=== PATIENT | male | born 1960 | race American Indian/Alaskan Native ===

== ENCOUNTER 2018-11-22 14:03 | Emergency (ER) | payer OTHER ==
[~2018-11-22] VITALS: Ht 175.3 cm; Wt 78.5 kg
[~2018-11-22 14:03] MED LIST: NEXIUM20 MG PO; SUCRALFATE1 GM/10 ML PO
[2018-11-22] MEDS ORDERED: ZOFRAN4 MG PO (18:47)
== END 2018-11-22 19:04 | disposition home or self-care (01) ==
LOC: ED 14:03
DX: F10.10 Alcohol abuse, uncomplicated (principal); E86.0 Dehydration; I10 Essential (primary) hypertension; E11.9 Type 2 diabetes mellitus without complications; Z91.038 Other insect allergy status; Z91.030 Bee allergy status; Z79.899 Other long term (current) drug therapy
CPT/HCPCS: 80053; 81001; 83690; 85025; 96361; 96374; 96375; 96376; 99284-25; J2405; J2765; J7030

== ENCOUNTER 2019-09-10 05:35 | Day surgery (SDC) | payer OTHER ==
[~2019-09-10] VITALS: Ht 175.3 cm; Wt 74.8 kg
[~2019-09-10 05:35] MED LIST changes: +ADVIL200 MG PO; +ZOFRAN4 MG PO
--- NOTE | 2019-09-10 08:02 | NUR ---
09/10/19 0802 Maria Alejandra Victor 0755 PT ARRIVED TO PACU ON 2L VIA NC, PT NONAROUSABLE TO TACTILE STIMULI. SNORING NOTED, RESP EVEN AND UNLABORED. 0800 PT WOKE TO TACTILE STIMULI AND O2 REMOVED. PT REORIENTED TO PACU. PT BACK TO SLEEP.
--- NOTE | 2019-09-11 07:06 | OR ---
[facility] [address] [place], [place] [address] Signed DATE OF OPERATION: 09/10/2019 SURGEON: Jose Manuel Sierra MD PREOPERATIVE DIAGNOSIS: Screening. POSTOPERATIVE DIAGNOSES: 1. 4 mm polyps in proximal right colon, mid right colon, proximal transverse colon (90 cm) and 18 cm. 2. Minimal internal hemorrhoids. PROCEDURE: Colonoscopy with hot biopsy. ESTIMATED BLOOD LOSS: None. INDICATIONS: Earnestine is a 58-year-old gentleman, asked to see me for his initial screening colonoscopy. He said he has no lower GI complaints. There is no family history of colon cancer or polyps. I gave him a pamphlet on colonoscopy. We looked at that together along with the risks including, but not limited to gas, bloating, crampy abdominal pain, bleeding, perforation requiring surgery, and missed diagnosis. We also reviewed the need for IV conscious sedation. He has a long history of daily alcohol use and elevated liver function test. Consequently, we asked an anesthesia provider help us with increased monitoring and sedation with propofol. He had expressed understanding and wished to proceed. DESCRIPTION OF PROCEDURE: Earnestine was taken into our endoscopy suite and placed in the left lateral decubitus position. He was given IV sedation with propofol per our nurse business strategy manager. A digital rectal exam was performed and he does have some induration to the prostate gland. The adult colonoscope was introduced and advanced all around into the cecum under direct visualization of camera without difficulty. His prep was good. The scope was slowly withdrawn. We took pictures throughout for photodocumentation. We could easily see the appendiceal orifice and the ileocecal valve. The above-mentioned polyps were easily removed with the help of hot biopsy forceps. There was no diverticulosis. The rectum was unremarkable. Upon retroflexion of the scope, he has some very minimal internal hemorrhoid tissue. The gas was suctioned out. The colonoscope removed. Earnestine Electronically Signed By: JOSE MANUEL SIERRA MD 09/11/19 0706 PATIENT NAME: EARNESTINE AVILAN III OPERATIVE REPORT DATE OF : 62 REPORT #: [id number] PHYSICIAN: JOSE MANUEL SIERRA MD PCP: EBONY CORTES REPORT IS CONFIDENTIAL AND NOT TO BE RELEASED WITHOUT AUTHORIZATION [facility] [address] [place] [id number] Signed tolerated his procedure quite well. RECOMMENDATIONS: I will see Earnestine back in my office in 7 to 14 days to review his results. MD HANNA Sheikh/MODL /[id number] cc: MD Ebony Sheikh Copies: JOSE MANUEL SIERRA MD, ELIZABETH ~ Electronically Signed By: JOSE MANUEL SIERRA MD 09/11/19 0706 PATIENT NAME: EARNESTINE AVILAN III OPERATIVE REPORT DATE OF : 62 REPORT #: [id number] PHYSICIAN: JOSE MANUEL SIERRA MD PCP: EBONY CORTES REPORT IS CONFIDENTIAL AND NOT TO BE RELEASED WITHOUT AUTHORIZATION
--- NOTE | 2019-09-13 15:43 | PATH ---
[facility] [address] [place], [place] [address] Signed SPECIMEN(S): A PROXIMAL TRANSVERSE POLYP AT 90 CM SPECIMEN(S): B MID ASCENDING POLYP SPECIMEN(S): C PROXIMAL ASCENDING POLYP SPECIMEN(S): D COLON POLYP AT 18 CM SPECIMEN SOURCE: A. PROXIMAL TRANSVERSE POLYP AT 90 CM B. MID ASCENDING POLYP C. PROXIMAL ASCENDING POLYP D. COLON POLYP AT 18 CM CLINICAL HISTORY: Screening. Dx: Polyps, int hem. MICROSCOPIC DESCRIPTION: Histologic sections of all submitted blocks are examined by light microscopy. These findings, together with the gross examination, support the pathologic diagnosis. FINAL PATHOLOGIC DIAGNOSIS: A. Mucosa, transverse colon at 90 cm, biopsy: - Surface Features suggestive but not entirely diagnostic of hyperplastic polyp (See comment). B. Mucosa, mid ascending colon, biopsy: - Tubular adenoma. C. Mucosa, proximal ascending colon, biopsy: - Surface Features suggestive but not entirely diagnostic of hyperplastic polyp (See comment). D. Mucosa, colon at 18 cm, biopsy: - Surface Features suggestive but not entirely diagnostic of hyperplastic polyp (See comment). COMMENT: A, C, D -- Multiple levels over three slides are examined. No adenomatous change or full thickness hyperplastic change is seen. ARMANDOA:cml:C2NR GROSS DESCRIPTION: Four specimens are received in four containers, labeled "DM." A. The specimen, labeled "DM, proximal transverse colon polyp at 90 cm," is received in formalin and consists of two duran-white soft tissue fragments ranging from 0.2-0.3 cm in greatest dimension. PATIENT NAME: EARNESTINE AVILA III PATHOLOGY DATE OF : 62 REPORT #: [id number] PHYSICIAN: KEVIN KRISHNA PCP: SHAR CORTES REPORT IS CONFIDENTIAL AND NOT TO BE RELEASED WITHOUT AUTHORIZATION [facility] [address] [place], [place] [address] Signed The specimen is entirely submitted in cassette (A1). B. The specimen, labeled "DM, mid ascending polyp," is received in formalin and consists of a 0.2 cm greatest dimension irregular duran-white soft tissue fragment. The specimen is entirely submitted in cassette (B1). C. The specimen, labeled "DM, proximal ascending polyp," is received in formalin and consists of a 0.2 cm greatest dimension irregular duran-white soft tissue fragment. The specimen is entirely submitted in cassette (C1). D. The specimen, labeled "DM, colon polyp at 18 cm," is received in formalin and consists of a 0.2 cm greatest dimension irregular duran-white soft tissue fragment. The specimen is entirely submitted in cassette (D1). AR (under the direct supervision of a pathologist) The Gross Description was prepared using a voice recognition system. The report was reviewed for accuracy; however, sound-alike word errors, addition and/or deletions may occur. If there is any question about this report, please contact Client Services. PERFORMING LABORATORY: The technical component was performed by [employer] [address] (Sagger Maker: Lianne Colbert MD; CLIA# [id number]). [facility] [address] [place] [address] (Sagger Maker: Serafin Dawson MD; CLIA# [id number]). Diagnostician: Serafin Dawson MD Pathologist Electronically Signed 09/13/2019 Copies: ~ PATIENT NAME: EARNESTINE AVILA III PATHOLOGY DATE OF : 62 REPORT #: [id number] PHYSICIAN: KEVIN PATHOLOGY PCP: SHAR CORTES REPORT IS CONFIDENTIAL AND NOT TO BE RELEASED WITHOUT AUTHORIZATION
== END 2019-09-10 08:36 | disposition home or self-care (01) ==
LOC: DS 05:35 → OPS 05:35 → DS 06:45 → OPS 06:45
PROVIDERS: Colon & Rectal Surgery
PROC: 0DBK8ZZ Excision of Ascending Colon, Via Natural or Artificial Opening Endoscopic (ICD-10-PCS; 2019-09-10)
PROC: 0DBE8ZZ Excision of Large Intestine, Via Natural or Artificial Opening Endoscopic (ICD-10-PCS; 2019-09-10)
PROC: 0DBL8ZZ Excision of Transverse Colon, Via Natural or Artificial Opening Endoscopic (ICD-10-PCS; principal; 2019-09-10 06:45)
DX: Z12.11 Encounter for screening for malignant neoplasm of colon (principal); D12.2 Benign neoplasm of ascending colon; K63.5 Polyp of colon; K64.8 Other hemorrhoids; N42.89 Other specified disorders of prostate; I11.0 Hypertensive heart disease with heart failure; I50.9 Heart failure, unspecified; K21.9 Gastro-esophageal reflux disease without esophagitis; E78.5 Hyperlipidemia, unspecified; E55.9 Vitamin D deficiency, unspecified; E11.9 Type 2 diabetes mellitus without complications; F10.20 Alcohol dependence, uncomplicated; I25.2 Old myocardial infarction; Z91.030 Bee allergy status
CPT/HCPCS: J2704; J7120

== ENCOUNTER 2022-09-05 15:41 | Observation (INO) | payer OTHER ==
[~2022-09-05] VITALS: Ht 175.3 cm; Wt 71.0 kg
--- NOTE | 2022-09-05 22:00 | NUR ---
DR TRONCOSO AT RN STATION. PER DR TRONCOSO, pt HAS HX OF DIABETES BUT IS DIET CONTROLLED. NO NEED FOR ACCU CHECKS AT THIS TIME. PRIMARY RN SHAMIKA UPDATED AND AWARE.
--- NOTE | 2022-09-05 22:23 | NUR ---
pt ARRIVED TO MEDSUR FLOOR FROM ED, PRIMARY RN SHAMIKA AND OMID ALEXANDER BOTH IN ROOM TO COMPLETE ADMISSION AND ORIENT pt TO ROOM. WILL CONTINUE TO MONITOR.
--- NOTE | 2022-09-05 23:03 | NUR ---
XRAY IN RM FOR KUB
--- NOTE | 2022-09-05 23:37 | NUR ---
DR TRONCOSO AWARE THAT ORIGINAL POTASSIUM CHLORIDE ORDER HAD TO BE SWITHCED TO AFTER HOURS TO BE INFUSED IN 10MEQ LITTLE BAGS. ALSO CLARIFIED WITH DR TRONCOSO REGARDING IV POTASSIUM RIDER AND ORDERED IV MAINTENANCE FLUID ORDER, PER DR TRONCOSO TELEPHONE ORDER READ BACK BY THIS RN TO INFUSE POTASSIUM RIDER CONTINUSOUSLY WITH pt's ORDERED MAINTENANCE FLUIDS AND TO WAIT FOR LAB TO COLLECT BMP UNTIL pt HAS HAD 40MEQ POTASSIUM INFUSED (PER POTASSIUM INFUSION POLICY). PRIMARY RN SHAMIKA UPDATED AND AWARE. PER DR TRONCOSO, NO NEED TO CALL HER FOR BMP RESULTS LONG SODIUM AND POTASSIUM ARE TRENDING IN "RIGHT DIRECTION". DR TRONCOSO ALSO UPDATED ON ABD X-RAY RESULTS WHICH SHOWED NO BOWEL OBSTRUCTION.
--- NOTE | 2022-09-06 00:03 | NUR ---
mixed kcl iv with zulema rn 2nd check. iv scanned and fusing conncurrently on pump. pt resting eyes closed on right side.
--- NOTE | 2022-09-06 01:18 | NUR ---
rn started 2nd kcl 10 meq now via pump, resting eyes closed resp even r side. call light in reach.
--- NOTE | 2022-09-06 02:09 | NUR ---
lab in for bmp draw.
--- NOTE | 2022-09-06 03:47 | NUR ---
pt continues to rest on side - last k dhiraj infusing via pump now.
--- NOTE | 2022-09-06 05:28 | NUR ---
last kcl dhiraj complete - primary iv fusing well - pt continues to rest with no complaints other than kcl stings. call light in reach.
--- NOTE | 2022-09-06 08:09 | NUR ---
PT IN BED THIS MORNING, WOULD LIKE TO GET UP LATER. AM CARE COMPLETED. PT HAS NO OTHER NEEDS AT THIS TIME. CALL LIGHT WITHIN REACH.
[2022-09-06] MEDS ORDERED: TUMS200 MG PO (08:23)
--- NOTE | 2022-09-06 10:14 | NUR ---
BED ALARM ALERTED PT WAS GETTING OUT OF BED. THIS STUDENT NURSE IN ROOM WITH PT TO ASSIST TO BATHROOM. PT REPORTED THAT IT WAS "MOSTLY JUST GAS." PT ASSISTED BACK TO BED, PUMP PLUGGED IN, AND BED ALARM RESET. PT EDUCATED TO CALL BEFORE GETTING OUT OF BED SO THAT SOMEONE CAN BE IN THE ROOM WITH HIM TO STAND BY ASSIST. PT STATES NO MORE NEEDS AT THIS TIME AND CALL LIGHT IS WITHIN REACH.
--- NOTE | 2022-09-06 10:40 | NUR ---
PATIENT IN BED AFTER MEAL. VITALS AND I/O'S COMPLETED, AND ICE WATER WAS GIVEN. FAMILY IN ROOM. PT HAS NO OTHER NEEDS AT THIS TIME. CALL LIGHT WITHIN REACH.
--- NOTE | 2022-09-06 11:15 | NUR ---
IN ROOM TO ADMINISTER MEDICATION. PT SITTING UPRIGHT IN BED WATCHING TV WITH SON IN ROOM. RESP EVEN AND UNLABORED, IV POTASSIUM INFUSING. PT ATE 100% OF BREAKFAST AND DENIES ANY NAUSEA SINCE. CALL LIGHT IN REACH.
--- NOTE | 2022-09-06 11:38 | NUR ---
Pt IV pump alarming. Entered room to assess alarm. Potassium IV infusion completed. Stopped infusion and turned off IV pump. Flushed IV with 10 ml saline flush. IV saline locked. Pt left resting comfrotably watching TV with guest in room. Call light in reach.
[2022-09-06] MEDS ORDERED: POTASSIUM CHLO20 ME1 PO (12:37)
--- NOTE | 2022-09-06 12:50 | NUR ---
IN ROOM TO ADMINISTER MEDICATION. PT SITTING UPRIGHT IN BED VISITING WITH FAMILY AND WATCHING TV. DENIES NAUSEA. FINISHED BEER, 25% OF CLEARS TRAY, SAYS HE "JUST ISN'T THAT HUNGRY". PT EDUCATED TO CALL IF NOT TOLERATING PO POTASSIUM, PLAN TO D/C TO HOME OTHERWISE LATER TODAY.
--- NOTE | 2022-09-06 14:04 | NUR ---
ALL DISCHARGE INSTRUCTIONS REVIEWED WITH PT. AND QUESTIONS ANSWERED. CHILDREN PRESENT. IV REMOVED WITH CATH INTACT. PT. LEFT TO DRESS.
== END 2022-09-06 14:12 | disposition home or self-care (01) ==
LOC: ED 15:41 → MS 15:43
PROVIDERS: ADMIT Internal Medicine; ATTEND Internal Medicine
DX: E87.6 Hypokalemia (principal); R11.2 Nausea with vomiting, unspecified; F10.90 Alcohol use, unspecified, uncomplicated; Z91.038 Other insect allergy status; Z20.822 Contact with and (suspected) exposure to COVID-19
CPT/HCPCS: 36415; 74018; 80048; 80053; 81001; 83690; 83735; 85025; 96375; A9270; C9113; G0378; J2405; J2550; J3480; J7030; J7060; U0003

== ENCOUNTER 2022-11-07 15:38 | Emergency (ER) | payer OTHER ==
[~2022-11-07] VITALS: Ht 175.3 cm; Wt 70.8 kg
[~2022-11-07 15:38] MED LIST changes: +POTASSIUM CHLO20 ME1 PO; +TUMS200 MG PO
[2022-11-08] MEDS ORDERED: TAMIFLU75 MG PO (07:28)
[2022-11-08] MEDS ORDERED: ONDANSETRON ODT4 MG PO (08:11)
--- NOTE | 2022-11-09 19:02 | EKG ---
[facility] [address] [facility] [place] [address] Signed Sinus tachycardia Left anterior fascicular block Abnormal ECG No previous ECGs available Confirmed by JAYLIN CANDELARIA MD ([id number]) on 11/09/2022 7:01:53 PM Electronically Signed By: JAYLIN CANDELARIA MD 11/09/221901 PATIENT NAME: EARNESTINE AVILA III Electrocardiogram DATE OF : 62 PHYSICIAN: JAYLIN CANDELARIA MD REPORT #: [id number] REPORT IS CONFIDENTIAL AND NOT TO BE RELEASED WITHOUT AUTHORIZATION
== END 2022-11-08 08:18 | disposition home or self-care (01) ==
LOC: ED 15:38
DX: J10.1 Influenza due to other identified influenza virus with other respiratory manifestations (principal); E87.6 Hypokalemia; I10 Essential (primary) hypertension; E11.9 Type 2 diabetes mellitus without complications; Z91.030 Bee allergy status; Z20.822 Contact with and (suspected) exposure to COVID-19
CPT/HCPCS: 36415; 71045; 80048; 80053; 83735; 84484; 85025; 87502; 93005; 93010; 96361; 96365; 96366; 96375; 96376; 99284-25; A9270; C9113; J0780; J1885; J2405; J2765; J3480; J7121; U0003

== ENCOUNTER 2024-04-09 16:09 | Observation (INO) | payer OTHER ==
[~2024-04-09] VITALS: Ht 175.3 cm; Wt 70.0 kg
[~2024-04-09 16:09] MED LIST changes: +ONDANSETRON ODT4 MG PO; +ONDANSETRON ODT8 MG PO; +PROTONIX40 MG PO; +TAMIFLU75 MG PO
[2024-04-09 16:37] LABS: HEMATOCRIT 44.5 % (35.0-50.0); HEMOGLOBIN 15.3 g/dL (12.0-18.0); MCH 33.6 (27-36); MCHC 34.4 g/dl (30-36); MCV 97.7 fl (81-99); PLATELET COUNT 197 K/uL (140-440); RBC 4.56 M/ul (4.3-5.7); RDW 14.4 (10.5-15.0)
[2024-04-09 16:54] LABS: ALBUMIN 3.5 g/dL (3.4-5.0); ALBUMIN/GLOBULIN RATIO 0.64 (1.1-2.4); ANION GAP 14.1 (7-21); BANDS, MANUAL DIFF 1; BILIRUBIN, TOTAL 1.5 ng/dL (0.2-1.0); BUN/CREATININE RATIO 13.68 (6.0-28.6); CALCIUM 9.1 mg/dL (8.5-10.1); CREATININE, SERUM 0.95 mg/dL (0.70-1.30); LYMPHOCYTES, MANUAL DIFF 5; MAGNESIUM 1.8 mg/dL (1.8-2.4); MONOCYTES, MANUAL DIFF 12; NEUTROPHILS, MANUAL DIFF 82
[2024-04-09 16:57] LABS: POTASSIUM 2.1 mmol/L (3.5-5.1)
[2024-04-09] MEDS ORDERED: ondansetron HCL 4 MG/2 ML VIAL IV ONE (17:15)
[2024-04-09] MEDS ORDERED: AMP/SULBACTAM SOD 3 GM in SODIUM CHLORIDE 0.9% 100 ML IV ONE (17:30)
[2024-04-09] MEDS ORDERED: POTASSIUM CHLORIDE 10 MEQ/100 ML BAG IV SCH ×2 (17:30→20:00)
[2024-04-09] MEDS ORDERED: PANTOPRAZOLE SODIUM 40 MG TABEC PO SCH (18:17)
[2024-04-09 18:33] LABS: BILIRUBIN, URINE NEGATIVE (negative); BLOOD/HGB, URINE NEGATIVE (Negative); KETONE, URINE SMALL (Negative); LEUK ESTERASE, URINE NEGATIVE (negative); NITRITE, URINE NEGATIVE (negative); PH, URINE 8.5 (5-7)
[2024-04-09 18:44] LABS: BACTERIA, URINE NONE SEEN /hpf (negative); CASTS, URINE HYALINE 1+ \\lpf; CRYSTALS, URINE NONE SEEN (0-1+); EPITHELIAL CELLS, URINE SQUAMOUS 1+ /lpf (0-1+); RED BLOOD CELLS, URINE 0-1 /hpf (0-5)
[2024-04-09 18:45] LABS: COLLECTION TYPE, URINE CLEAN CATCH; REFLEX CULTURE, URINE No (No)
[2024-04-09 18:47] VITALS: BP 120/70
[2024-04-09 19:00] VITALS: BP 109/56
[2024-04-09] MEDS ORDERED: IBLOOD GLUCOSE TEST STRIP 1 EA TEST XX PRN (19:00)
[2024-04-09] MEDS ORDERED: ACETAMINOPHEN 325 MG TAB PO PRN (19:00)
[2024-04-09] MEDS ORDERED: GLUCAGON,HUMAN RECOMBINANT 1 MG/ML VIAL SUB-Q PRN (19:00)
[2024-04-09] MEDS ORDERED: DEXTROSE 5% 1,000 ML IV PRN (19:00)
[2024-04-09] MEDS ORDERED: DEXTROSE 50% 50 ML SYR IV PRN ×2 (19:00)
[2024-04-09 19:30] VITALS: BP 109/66
--- NOTE | 2024-04-09 19:58 | NUR ---
PATIENT CONTINUES TO BE NAUSEOUS WITH FREQUENT VOMITING. DISCUSSED WITH MD. ORDERS RECEIVED FOR ANTIEMETICS, ABX, IVF, AND ELECTROLYTE REPLACEMENT. VERIFIED WITH REPEAT BACK METHOD. SEE EMAR. IN TO SEE PATIENT.
[2024-04-09] MEDS ORDERED: ondansetron HCL 4 MG/2 ML VIAL IV PRN (20:00)
[2024-04-09] MEDS ORDERED: PROCHLORPERAZINE EDISYLATE 10 MG/2 ML VIAL IV PRN (20:00)
[2024-04-09] MEDS ORDERED: MAGNESIUM SULFATE 2 GM/50 ML BAG IV ONE (20:00)
[2024-04-09] MEDS ORDERED: LACTATED RINGER'S 1,000 ML IV SCH (20:00)
[2024-04-09] MEDS ORDERED: PANTOPRAZOLE SODIUM 40 MG/10 ML VIAL IV ONE (20:00)
[2024-04-09] MEDS ORDERED: PIPERACILLIN/TAZOBACTAM 4.5 GM in DEXTROSE 5% 100 ML IV SCH (20:00)
--- NOTE | 2024-04-09 20:00 | NUR ---
PRN COMPAZINE PROVIDED. IVF, K+ AND MAG REPLACEMENT STARTED PER ORDER. PATIENT RESTING IN BED. CONTINUES TO FEEL NAUSEOUS WITH INTERMITTENT DRY HEAVING. VS STABLE. IV SITE WNL.
[2024-04-09 20:21] VITALS: BP 102/54
[2024-04-09] MEDS ORDERED: TRIMETHOPRIM/SULFAMETHOXAZOLE 1 EA TAB PO SCH (21:00)
[2024-04-09] MEDS ORDERED: IBLOOD GLUCOSE TEST STRIP 1 EA TEST VI SCH (21:00)
[2024-04-09] MEDS ORDERED: INSULIN LISPRO 100 UNIT/ML ML SUB-Q SCH (21:00)
--- NOTE | 2024-04-09 21:42 | NUR ---
ACCU CHECK AND K+ REPLACEMENT PROVIDED PER ORDER. PATIENT IS SLEEPING OFF AND ON. REPORTS FEELING SLIGHTLY BETTER, MINIMAL NAUSEA NOW. IV SITE WNL, FLUIDS AND K+ REPLACMENT PER ORDER. CALL LIGHT IN REACH. PATIENT DENIED NEEDS.
[2024-04-09 22:00] VITALS: BP 98/58
--- NOTE | 2024-04-09 22:30 | NUR ---
PATIENT RESTING WITH EYES CLOSED. APPEARS COMFORTABLE. VS STABLE. UPDATED WHILE HE WAS ON THE UNIT. PLAN OF CARE REVIEWED.
--- NOTE | 2024-04-09 23:30 | NUR ---
PATIENT'S SON ARRIVED TO THE ROOM. UPDATE PROVIDED ON PLAN OF CARE. PATIENT APPEARS TO BE SLEEPING SOUNDLY. VS STABLE.
[2024-04-10] VITALS (7 sets, daily range): BP systolic 100–124; BP diastolic 58–82
[2024-04-10] MEDS ORDERED: PIPERACILLIN/TAZOBACTAM 3.375 GM VIAL ONE (01:18)
[2024-04-10 01:56] LABS: ANION GAP 8.5 (7-21); BUN/CREATININE RATIO 23.07 (6.0-28.6); CALCIUM 8.4 mg/dL (8.5-10.1); CREATININE, SERUM 0.78 mg/dL (0.70-1.30); MAGNESIUM 2.6 mg/dL (1.8-2.4); POTASSIUM 2.5 mmol/L (3.5-5.1)
[2024-04-10] MEDS ORDERED: PIPERACILLIN/TAZOBACTAM 3.375 GM in DEXTROSE 5% 100 ML IV SCH (02:00)
--- NOTE | 2024-04-10 02:21 | NUR ---
PATIENT LAB RESULTS REVIEWED AND K+ REPLACEMENT ORDERED PER MD.
[2024-04-10] MEDS ORDERED: POTASSIUM CHLORIDE 10 MEQ/100 ML BAG IV SCH (02:30)
--- NOTE | 2024-04-10 02:49 | NUR ---
PATIENT WOKE EASILY. DENIES NEED TO VOID. REPORTS HIS STOMACH IS FEELING BETTER. DENIED PAIN IN HIS GROIN WHERE ABCESS WAS DRAINED. VS STABLE. PROVIDED ICE CHIPS AND JELLO PER REQUEST.
--- NOTE | 2024-04-10 03:43 | NUR ---
PATIENT RESTING WITH EYES CLOSED. VS STABLE. APPEARS COMFORTABLE. SON AT BEDSIDE. IV FLUIDS AND MEDS PER ORDER, SITE WNL.
--- NOTE | 2024-04-10 05:30 | NUR ---
PATIENT RESTING WITH EYES CLOSED. WAKES EASILY TO VOICE. DENIED GI UPSET. IV SITE WNL. VS STABLE. ENCOURAGED PATIENT TO TRY TO VOID, PATIENT AGREES. SON AT BEDSIDE. ALLOWED PATIENT PRIVACY.
--- NOTE | 2024-04-10 06:38 | NUR ---
PATIENT VOIDED 350 MLS BASSAM COLORED URINE. WOUND PACKING NOTED TO BE IN PLACE. DRIED DRAINAGE NOTED AROUND WOUND SITE. DISCUSSED WITH MD. ORDERS TO REPACK DRESSING DAILY.
[2024-04-10 06:43] LABS: BASOPHILS 0.3 % (0-2); HEMATOCRIT 39.2 % (35.0-50.0); HEMOGLOBIN 13.2 g/dL (12.0-18.0); LYMPHOCYTES 15.4 % (24-44); MCH 33.2 (27-36); MCHC 33.8 g/dl (30-36); MCV 98.2 fl (81-99); MONOCYTES 12.8 % (0-12); NEUTROPHILS 71.5 % (39-80); PLATELET COUNT 175 K/uL (140-440); RBC 3.99 M/ul (4.3-5.7); RDW 14.2 (10.5-15.0)
[2024-04-10 06:50] LABS: ANION GAP 6.8 (7-21); BUN/CREATININE RATIO 18.29 (6.0-28.6); CALCIUM 8.2 mg/dL (8.5-10.1); CREATININE, SERUM 0.82 mg/dL (0.70-1.30); MAGNESIUM 2.3 mg/dL (1.8-2.4); POTASSIUM 2.8 mmol/L (3.5-5.1)
[2024-04-10] MEDS ORDERED: Calcium Gluconate in NS 1,000 MG/50 ML BAG IV ONE (07:15)
--- NOTE | 2024-04-10 07:30 | NUR ---
REPORT RECEIVED FROM MARTIN BELLAMY. PT IS RESTING IN BED, RESP EVEN AND UNLABORED, HR 70'S SR. SON IN ROOM ON COUCH.
[2024-04-10] MEDS ORDERED: POTASSIUM CHLORIDE 10 MEQ TABCR PO ONE ×2 (08:00→12:00)
--- NOTE | 2024-04-10 08:00 | NUR ---
IN TO DO AM MEDS AND ASSESSMENT AND BRING BREAKFAST IN.
[2024-04-10] MEDS ORDERED: TRIMETHOPRIM/SULFAMETHOXAZOLE 1 EA TAB PO SCH (09:19)
--- NOTE | 2024-04-10 09:44 | NUR ---
PT WAS NOT ABLE TO EAT HIS BREAKFAST, WAS APPLE TO DRINK SOME APPLE JUICE AND TAKE HIS PILLS. STATES HIS THROAT HIS HURTING.
[2024-04-10 11:27] LABS: ANION GAP 6.9 (7-21); BUN/CREATININE RATIO 17.5 (6.0-28.6); CALCIUM 8.2 mg/dL (8.5-10.1); CREATININE, SERUM 0.8 mg/dL (0.70-1.30); POTASSIUM 2.9 mmol/L (3.5-5.1)
[2024-04-10] MEDS ORDERED: PHARMACY RENAL DOSE ADJUSTMENT 1 DOSE MISC PO SCH (12:00)
--- NOTE | 2024-04-10 12:09 | NUR ---
PT SITTING UP IN BED, FAMILY IN VISITING HIM, DENIES NEEDS, TRYING TO TRY A FEW BITES OF LUNCH. RECENT LAB RESULTS RECEIVED, ORDER FOR ORAL KCL ENTERED, PT STATES HE CANT TOLERATE PILLS, WILL CHANGE TO ORAL SOLUTION.
[2024-04-10] MEDS ORDERED: POTASSIUM CHLORIDE 20 MEQ/15 ML CUP PO ONE ×2 (12:15→16:00)
[2024-04-10 15:19] LABS: ANION GAP 7.4 (7-21); BUN/CREATININE RATIO 15.71 (6.0-28.6); CALCIUM 8.3 mg/dL (8.5-10.1); CREATININE, SERUM 0.7 mg/dL (0.70-1.30); POTASSIUM 3.4 mmol/L (3.5-5.1)
--- NOTE | 2024-04-10 15:50 | NUR ---
IN TO DO ASSESSMENT, PT HAS BEEN EATING BITES OF SHERBET, DENIES PAIN OR NEEDS.
--- NOTE | 2024-04-10 16:01 | NUR ---
DR LOGAN IN TO SEE PT, GO OVER MOST RECENT POTASSIUM RESULT. WILL GIVE ADDITIONAL DOSE OF KCL
[2024-04-10] MEDS ORDERED: SULFAMETHOXAZO1 EAC1 PO (17:06)
--- NOTE | 2024-04-10 18:00 | NUR ---
DR DESMOND TAPIA PT TO DISCHARGE HOME WITH PLAN FOR OUTPATIENT WOUND CARE ORDERS. PERINEAL WOUND WAS CLEANED, OLD PACKING REMOVED AND NEW XEROFORM GAUZE PACKING PLACED, ONE PACK OF XEROFORM USED. DISCHARGE INSTRUCTIONS GIVEN AND PT VERBALIZES UNDERSTANDING. PT GIVEN PRESCRIPTION FOR ABX ON PAPER AND PLANS TO GO TO [facility] FOR MEDS TONIGHT [facility] IS CLOSED THIS WEEKEND. IV SITES X2 DC'D WITH TIPS INTACT, VSS. PT ESCORTED OUT TO HOME, SON WAITING AT DOOR FOR HIM.
== END 2024-04-10 18:15 | disposition home or self-care (01) ==
LOC: ED 16:09 → CCU 16:12
PROVIDERS: Emergency Medicine; ADMIT Internal Medicine; ATTEND Internal Medicine
PROC: 0H99XZZ Drainage of Perineum Skin, External Approach (ICD-10-PCS; principal; 2024-04-09)
DX: E87.6 Hypokalemia (principal); E87.1 Hypo-osmolality and hyponatremia; E83.42 Hypomagnesemia; L02.215 Cutaneous abscess of perineum; I10 Essential (primary) hypertension; E11.9 Type 2 diabetes mellitus without complications; Z91.030 Bee allergy status
CPT/HCPCS: 36415; 80048; 80053; 81001; 83735; 84484; 85025; A9270; C9113; J0295; J0780; J1815; J2405; J2543; J3475; J3480; J7121

== ENCOUNTER 2024-06-25 11:05 | Observation (INO) | payer OTHER ==
[~2024-06-25] VITALS: Ht 175.3 cm; Wt 73.9 kg
[~2024-06-25 11:05] MED LIST changes: +SULFAMETHOXAZO1 EAC1 PO
[2024-06-25] MEDS ORDERED: PROCHLORPERAZINE EDISYLATE 10 MG/2 ML VIAL IV ONE (11:15)
[2024-06-25] MEDS ORDERED: PANTOPRAZOLE SODIUM 40 MG/10 ML VIAL IV ONE (11:15)
[2024-06-25] MEDS ORDERED: SODIUM CHLORIDE 0.9% 1,000 ML IV ONE (11:15)
[2024-06-25 11:25] LABS: BASOPHILS 0.3 % (0-2); EOSINOPHILS 0.3 % (0-6); HEMOGLOBIN 15.9 g/dL (12.0-18.0); LYMPHOCYTES 5.5 % (24-44); MCH 34.3 (27-36); MCHC 34.5 g/dl (30-36); MCV 99.5 fl (81-99); MONOCYTES 10.1 % (0-12); NEUTROPHILS 83.8 % (39-80); PLATELET COUNT 154 K/uL (140-440); RBC 4.62 M/ul (4.3-5.7); RDW 14.2 (10.5-15.0)
[2024-06-25 11:36] LABS: ALBUMIN 3.1 g/dL (3.4-5.0); ALBUMIN/GLOBULIN RATIO 0.62 (1.1-2.4); ALCOHOL, MEDICAL <3 ng/dL (<3); ALKALINE PHOSPHATASE 48 U/L (46-116); ALT (SGPT) 27 U/L (14-59); ANION GAP 14.2 (7-21); AST (SGOT) 41 U/L (15-37); BILIRUBIN, TOTAL 1.6 ng/dL (0.2-1.0); CALCIUM 8.8 mg/dL (8.5-10.1); CARBON DIOXIDE 31 mmol/L (21-32); CHLORIDE 84 mmol/L (98-107); CREATININE, SERUM 0.93 mg/dL (0.70-1.30); GLOMERULAR FILTRATION RATE,EST 93 mL/min (>60); MAGNESIUM 1.8 mg/dL (1.8-2.4); PROTEIN, TOTAL 8.1 g/dL (6.4-8.2); UREA NITROGEN 12 mg/dL (7-18)
[2024-06-25 11:38] LABS: POTASSIUM 2.2 mmol/L (3.5-5.1)
[2024-06-25] MEDS ORDERED: SODIUM CHLORIDE 0.9% INH ONE (12:00)
[2024-06-25] MEDS ORDERED: METOCLOPRAMIDE HCL 10 MG/2 ML SDV IV ONE (12:00)
[2024-06-25] MEDS ORDERED: POTASSIUM CHLORIDE 10 MEQ/100 ML BAG IV SCH (12:00)
[2024-06-25] MEDS ORDERED: LACTATED RINGER'S 400 ML IV SCH (12:15)
[2024-06-25] MEDS ORDERED: POTASSIUM CHLORIDE 20 MEQ/15 ML CUP PO SCH ×2 (12:15→17:00)
[2024-06-25 16:10] LABS: ANION GAP 4.9 (7-21); BUN/CREATININE RATIO 13.23 (6.0-28.6); CREATININE, SERUM 0.68 mg/dL (0.70-1.30); POTASSIUM 2.9 mmol/L (3.5-5.1)
[2024-06-25] MEDS ORDERED: MAGNESIUM SULFATE 2 GM/50 ML BAG IV ONE ×2 (16:30→17:45)
[2024-06-25] MEDS ORDERED: droPERidol 5 MG/2 ML VIAL IV ONE (16:30)
[2024-06-25] MEDS ORDERED: FAMOTIDINE 20 MG TAB PO SCH (17:27)
[2024-06-25] MEDS ORDERED: ENOXAPARIN SODIUM 40 MG/0.4 ML SYR SUB-Q SCH (17:28)
[2024-06-25] MEDS ORDERED: POTASSIUM CHLORIDE 40 MEQ,LIDOCAINE HCL 1% 40 MG in DEXTROSE 5% 250 ML IV ONE (17:45)
[2024-06-25] MEDS ORDERED: ACETAMINOPHEN 325 MG TAB PO PRN (18:00)
[2024-06-25] MEDS ORDERED: PROCHLORPERAZINE EDISYLATE 10 MG/2 ML VIAL IV PRN (18:00)
[2024-06-25] MEDS ORDERED: LACTATED RINGER'S 1,000 ML IV SCH (18:00)
[2024-06-25] MEDS ORDERED: ondansetron HCL 4 MG/2 ML VIAL IV PRN (18:00)
[2024-06-25 18:03] VITALS: BP 143/70
[2024-06-25 20:15] LABS: ALBUMIN 2.5 g/dL (3.4-5.0); ALBUMIN/GLOBULIN RATIO 0.61 (1.1-2.4); ANION GAP 6.8 (7-21); BILIRUBIN, TOTAL 1.4 ng/dL (0.2-1.0); BUN/CREATININE RATIO 11.94 (6.0-28.6); CALCIUM 7.7 mg/dL (8.5-10.1); CREATININE, SERUM 0.67 mg/dL (0.70-1.30); MAGNESIUM 2.3 mg/dL (1.8-2.4); POTASSIUM 2.8 mmol/L (3.5-5.1); PROTEIN, TOTAL 6.6 g/dL (6.4-8.2)
[2024-06-25 20:44] VITALS: BP 108/65
[2024-06-25 23:02] VITALS: BP 108/65
[2024-06-26] VITALS (10 sets, daily range): BP systolic 115–148; BP diastolic 73–93
[2024-06-26 05:07] LABS: BASOPHILS 0.1 % (0-2); EOSINOPHILS 0.2 % (0-6); HEMATOCRIT 39.7 % (35.0-50.0); HEMOGLOBIN 13.6 g/dL (12.0-18.0); LYMPHOCYTES 24.7 % (24-44); MCH 34.4 (27-36); MCHC 34.2 g/dl (30-36); MCV 100.6 fl (81-99); MONOCYTES 13.3 % (0-12); NEUTROPHILS 61.7 % (39-80); PLATELET COUNT 133 K/uL (140-440); RBC 3.95 M/ul (4.3-5.7); RDW 13.6 (10.5-15.0)
[2024-06-26 05:27] LABS: ALBUMIN 2.6 g/dL (3.4-5.0); ALBUMIN/GLOBULIN RATIO 0.62 (1.1-2.4); ANION GAP 7.9 (7-21); BILIRUBIN, TOTAL 1.2 ng/dL (0.2-1.0); BUN/CREATININE RATIO 13.84 (6.0-28.6); CALCIUM 8.1 mg/dL (8.5-10.1); CREATININE, SERUM 0.65 mg/dL (0.70-1.30); MAGNESIUM 2.2 mg/dL (1.8-2.4); POTASSIUM 2.9 mmol/L (3.5-5.1); PROTEIN, TOTAL 6.8 g/dL (6.4-8.2)
[2024-06-26] MEDS ORDERED: POTASSIUM CHLORIDE 10 MEQ TABCR PO ONE (06:30)
[2024-06-26] MEDS ORDERED: POTASSIUM CHLORIDE 40 MEQ,LIDOCAINE HCL 1% 40 MG in DEXTROSE 5% 250 ML IV ONE ×2 (06:30→08:30)
[2024-06-26] MEDS ORDERED: PHARMACY RENAL DOSE ADJUSTMENT 1 DOSE MISC PO SCH (12:00)
[2024-06-26 12:21] LABS: ALBUMIN 2.6 g/dL (3.4-5.0); ALBUMIN/GLOBULIN RATIO 0.62 (1.1-2.4); ANION GAP 8.6 (7-21); BUN/CREATININE RATIO 12.3 (6.0-28.6); CALCIUM 7.8 mg/dL (8.5-10.1); CREATININE, SERUM 0.65 mg/dL (0.70-1.30); POTASSIUM 3.6 mmol/L (3.5-5.1); PROTEIN, TOTAL 6.8 g/dL (6.4-8.2)
[2024-06-26] MEDS ORDERED: Calcium Gluconate in NS 1,000 MG/50 ML BAG IV ONE (13:00)
[2024-06-27 01:27] VITALS: BP 142/90
[2024-06-27 01:32] VITALS: BP 142/90
[2024-06-27 05:15] LABS: BASOPHILS 0.4 % (0-2); HEMATOCRIT 40.3 % (35.0-50.0); HEMOGLOBIN 13.9 g/dL (12.0-18.0); LYMPHOCYTES 36.1 % (24-44); MCH 34.3 (27-36); MCHC 34.4 g/dl (30-36); MCV 99.6 fl (81-99); MONOCYTES 14.5 % (0-12); PLATELET COUNT 139 K/uL (140-440); RBC 4.04 M/ul (4.3-5.7); RDW 13.6 (10.5-15.0)
[2024-06-27 05:23] VITALS: BP 142/77
[2024-06-27 05:24] LABS: ANION GAP 9.2 (7-21); BUN/CREATININE RATIO 10.71 (6.0-28.6); CALCIUM 8.1 mg/dL (8.5-10.1); CREATININE, SERUM 0.56 mg/dL (0.70-1.30); MAGNESIUM 1.8 mg/dL (1.8-2.4); POTASSIUM 3.2 mmol/L (3.5-5.1)
[2024-06-27 05:59] VITALS: BP 142/77
[2024-06-27] MEDS ORDERED: POTASSIUM CHLORIDE 10 MEQ TABCR PO ONE (06:30)
[2024-06-27 08:30] LABS: OSMOLALITY 273 mOsm/kg (280-303)
[2024-06-27 09:15] VITALS: BP 152/87
--- NOTE | 2024-06-27 09:43 | EKG ---
[facility] [address] [facility] [place] [address] Signed Sinus rhythm with premature atrial complexes Otherwise normal ECG When compared with ECG of 07-NOV-2022 20:20, premature atrial complexes are now present Confirmed by EZEQUIEL LOGAN MD ([id number]) on 06/27/2024 9:43:13 AM Electronically Signed By: EZEQUIEL LOGAN 06/27/24 0943 PATIENT NAME: EARNESTINE AVILA III Electrocardiogram DATE OF : 62 PHYSICIAN: EZEQUIEL LOGAN REPORT #: [id number] REPORT IS CONFIDENTIAL AND NOT TO BE RELEASED WITHOUT AUTHORIZATION
[2024-06-27 10:17] LABS: ANION GAP 12.2 (7-21); BUN/CREATININE RATIO 10.44 (6.0-28.6); CALCIUM 8.1 mg/dL (8.5-10.1); CREATININE, SERUM 0.67 mg/dL (0.70-1.30); POTASSIUM 3.2 mmol/L (3.5-5.1)
[2024-06-27] MEDS ORDERED: ONDANSETRON ODT8 MG PO (10:38)
[2024-06-27] MEDS ORDERED: POTASSIUM CHLO20 ME1 PO (10:43)
== END 2024-06-27 11:32 | disposition home or self-care (01) ==
LOC: ED 11:05 → MS 11:07
PROVIDERS: Emergency Medicine; ADMIT Internal Medicine; ATTEND Internal Medicine
DX: E87.6 Hypokalemia (principal); E87.1 Hypo-osmolality and hyponatremia; E83.42 Hypomagnesemia; R11.2 Nausea with vomiting, unspecified; F12.90 Cannabis use, unspecified, uncomplicated; I10 Essential (primary) hypertension; E11.9 Type 2 diabetes mellitus without complications
CPT/HCPCS: 36415; 74177; 80048; 80053; 83605; 83690; 83735; 83930; 85025; 93005; 93010; A9270; G0480; J0780; J1650; J1790; J2470; J2765; J3475; J3480; J3490; J7030; J7060; J7120; J7121

== ENCOUNTER 2024-09-08 08:57 | Inpatient (IN) | payer OTHER ==
[~2024-09-08] VITALS: Ht 175.3 cm; Wt 73.7 kg
[2024-09-08] MEDS ORDERED: PANTOPRAZOLE SODIUM 40 MG/10 ML VIAL IV ONE (09:15)
[2024-09-08] MEDS ORDERED: HYDROmorphone HCL 1 MG/ML SYR IV ONE (09:15)
[2024-09-08] MEDS ORDERED: ondansetron HCL 4 MG/2 ML VIAL IV ONE (09:15)
[2024-09-08] MEDS ORDERED: SODIUM CHLORIDE 0.9% 1,000 ML IV ONE (09:15)
[2024-09-08 09:22] LABS: BASOPHILS 0.2 % (0-2); EOSINOPHILS 0.1 % (0-6); HEMATOCRIT 47.3 % (35.0-50.0); HEMOGLOBIN 16.5 g/dL (12.0-18.0); LYMPHOCYTES 6.8 % (24-44); MONOCYTES 12.5 % (0-12); NEUTROPHILS 80.4 % (39-80); PLATELET COUNT 178 K/uL (140-440); RBC 4.73 M/ul (4.3-5.7); RDW 13.7 (10.5-15.0)
[2024-09-08] MEDS ORDERED: LORazepam 2 MG/ML VIAL IV ONE (09:30)
[2024-09-08 09:38] LABS: ALBUMIN 3.9 g/dL (3.4-5.0); ALBUMIN/GLOBULIN RATIO 0.74 (1.1-2.4); ANION GAP 16.4 (7-21); BILIRUBIN, TOTAL 1.7 ng/dL (0.2-1.0); BUN/CREATININE RATIO 9.32 (6.0-28.6); CALCIUM 9.6 mg/dL (8.5-10.1); CREATININE, SERUM 1.18 mg/dL (0.70-1.30); PROTEIN, TOTAL 9.2 g/dL (6.4-8.2)
[2024-09-08 09:39] LABS: POTASSIUM 2.4 mmol/L (3.5-5.1)
[2024-09-08] MEDS ORDERED: POTASSIUM CHLORIDE 10 MEQ/100 ML BAG IV ONE ×2 (09:45→11:45)
[2024-09-08] MEDS ORDERED: SODIUM CHLORIDE 0.9% 1,000 ML IV PRN (10:00)
[2024-09-08 11:07] LABS: BILIRUBIN, URINE POSITIVE (negative); BLOOD/HGB, URINE NEGATIVE (Negative); KETONE, URINE SMALL (Negative); LEUK ESTERASE, URINE NEGATIVE (negative); NITRITE, URINE NEGATIVE (negative); PH, URINE 8.5 (5-7)
[2024-09-08 11:20] LABS: BACTERIA, URINE RARE /hpf (negative); CASTS, URINE NONE SEEN \\lpf; COLLECTION TYPE, URINE CLEAN CATCH; CRYSTALS, URINE NONE SEEN (0-1+); EPITHELIAL CELLS, URINE 0 /lpf (0-1+); RED BLOOD CELLS, URINE 0-1 /hpf (0-5); REFLEX CULTURE, URINE No (No)
[2024-09-08] MEDS ORDERED: PANTOPRAZOLE SODIUM 40 MG/10 ML VIAL IV SCH (11:27)
[2024-09-08] MEDS ORDERED: ENOXAPARIN SODIUM 40 MG/0.4 ML SYR SUB-Q SCH (11:27)
[2024-09-08] MEDS ORDERED: PROCHLORPERAZINE EDISYLATE 10 MG/2 ML VIAL IV PRN (11:30)
[2024-09-08] MEDS ORDERED: ondansetron HCL 4 MG/2 ML VIAL IV PRN (11:30)
[2024-09-08] MEDS ORDERED: ACETAMINOPHEN 325 MG TAB PO PRN (11:30)
[2024-09-08] MEDS ORDERED: LACTATED RINGER'S 1,000 ML IV SCH (11:30)
[2024-09-08 11:31] LABS: AMPHETAMINES, URINE NEGATIVE (NEGATIVE); BARBITURATES, URINE NEGATIVE (NEGATIVE); BENZODIAZEPINE, URINE NEGATIVE (NEGATIVE); BUPRENORPHINE, URINE NEGATIVE (NEGATIVE); CANNABINOID, URINE POSITIVE (NEGATIVE); COCAINE, URINE NEGATIVE (NEGATIVE); ECSTASY, URINE NEGATIVE (NEGATIVE); FENTANYL, URINE NEGATIVE (NEGATIVE); METHADONE, URINE NEGATIVE (NEGATIVE); OPIATES, URINE POSITIVE (NEGATIVE); OXYCODONE, URINE NEGATIVE (NEGATIVE); PHENCYCLIDINE, URINE NEGATIVE (NEGATIVE)
[2024-09-08] MEDS ORDERED: POTASSIUM BICARBONATE/CIT AC 20 MEQ TABEF PO ONE (11:45)
[2024-09-08] MEDS ORDERED: PHARMACY RENAL DOSE ADJUSTMENT 1 DOSE MISC PO SCH (12:00)
[2024-09-08 12:40] VITALS: BP 146/68
--- NOTE | 2024-09-08 13:07 | NUR ---
PATIENT TO ROOM 121. ADMISSION STARTED, VITALS ARE DOCUMENTED, PULSE IS IN THE 40'S. TELE # 8 SHOWS HR OF 53. PATIENT GIVEN JELLO AND PUDDING. IV PROTONIX GIVEN.
[2024-09-08] MEDS ORDERED: POTASSIUM CHLORIDE 40 MEQ,LIDOCAINE HCL 1% 40 MG in DEXTROSE 5% 250 ML IV ONE (13:15)
[2024-09-08 14:21] VITALS: BP 146/68
--- NOTE | 2024-09-08 14:42 | NUR ---
IN BED, RESTING WITH EYES CLOSED. ALLOWED TO REST. WILL RETURN TO COMPLETE ASSESSEMTN AT A LATER TIME.
[2024-09-08] MEDS ORDERED: THIAMINE HCL 200 MG/2 ML VIAL IV SCH (15:03)
[2024-09-08] MEDS ORDERED: GABAPENTIN 300 MG CAP PO SCH (15:04)
[2024-09-08] MEDS ORDERED: LORazepam 2 MG/ML VIAL IV/IM PRN (15:15)
[2024-09-08] MEDS ORDERED: PEPTO-BISMOL262 MG PO (16:06)
[2024-09-08] MEDS ORDERED: TUMS200 MG PO (16:06)
--- NOTE | 2024-09-08 16:07 | NUR ---
MED REC COMPLETE
[2024-09-08] MEDS ORDERED: POTASSIUM CHLORIDE 10 MEQ TABCR ONE (16:42)
[2024-09-08 17:49] VITALS: BP 118/69
--- NOTE | 2024-09-08 17:55 | NUR ---
PT RESTING IN BED, NAC IN GETTING VITALS. PT SITTING UP WITH 120ML EMESIS AFTER HIS MEDS, WHEN DINNER ARRIVED. REFUSING DINNER DUE TO NAUSEA. PRN MEDS GIVEN - SEE JAN. TOOK TRAY FROM PT, CALL LIGHT WITHIN REACH. DENIES PAIN ALL PT CARE NEEDS MET AT THIS TIME.
[2024-09-08 18:04] LABS: ANION GAP 9.6 (7-21); BUN/CREATININE RATIO 11.25 (6.0-28.6); CALCIUM 8.6 mg/dL (8.5-10.1); CREATININE, SERUM 0.8 mg/dL (0.70-1.30); POTASSIUM 3.6 mmol/L (3.5-5.1)
[2024-09-08] MEDS ORDERED: MAGNESIUM HYDROXIDE/AL HYDROX 30 ML CUP PO PRN (18:15)
[2024-09-08] MEDS ORDERED: IBLOOD GLUCOSE TEST STRIP 1 EA TEST XX PRN (18:30)
[2024-09-08] MEDS ORDERED: DEXTROSE 50% 50 ML SYR IV PRN ×2 (18:30)
[2024-09-08] MEDS ORDERED: GLUCAGON,HUMAN RECOMBINANT 1 MG/ML VIAL SUB-Q PRN (18:30)
[2024-09-08] MEDS ORDERED: DEXTROSE 5% 1,000 ML IV PRN (18:30)
--- NOTE | 2024-09-08 18:37 | NUR ---
PT HAS BEEN VOMITTING THIS EVENING, HE IS C/O HEARTBURN, MAALOX ORDERED PER NIO ORDERS. MD NOTIFIED NO BLOOD SUGAR CHECKS/INSULIN, PER MD HE WILL INPUT ORDERS. CBG 166 AT DINNER, PT NOT EATING WITH EMESIS NOT GOING TO ADMINISTER 1 UNIT OF INSULIN, WILL HOLD AND LEAVE FOR UNDERWATER ROBOTICIST TO REASSESS HIS BLOOD SUGAR/INSULIN NEEDS. PT GIVEN ZOFRAN AFTER X2 EMESIS.
--- NOTE | 2024-09-08 19:30 | NUR ---
in room to correct tele leads, black tele lead stuck to pt-near rlq. pt in bed wrapped up in gown, pt repositioned in bed and blankets provided. iv site wnl. emesis bag with 500mls emesis noted on bedside. bed alarm on for safety and room tidied. primary rn brigette made aware, call light in reach along with personal belongings.
--- NOTE | 2024-09-08 19:39 | NUR ---
REPORT RECIEVED FROM DAY SHIFT RN. PATIENT RESTING IN BED ON BACK. RESPIRATIONS EVEN AND UNLABORED. CALL LIGHT IN REACH.
[2024-09-08 20:06] VITALS: BP 116/74
[2024-09-08 20:09] VITALS: BP 116/74
--- NOTE | 2024-09-08 20:24 | NUR ---
VS AND I&Os OBTAINED AND RECORDED. BS OBTAINED AND RECORDED. ASSESSMENT COMPLETE. PATIENT REPORTS NAUSEA. PRN NAUSEA MEDICATION ADMINSITERED PER PATIENT REQUEST. PATIENT EDUCATED TO CALL IF HE NEEDS ANYTHING OR IS FEELING MORE NAUSEOUS. PATIENT VERBILIZES UNDERSTANDING. FRESH ICE WATER AND DIET SPRITE PROVIDED. PATIENT EDUCATED TO SIP SLOWLY TO PREVENT FURTHER NAUSEA. BED ALARM ON FOR SAFETY. PATIENT HAS NO FURTHER NEEDS AT THIS TIME. CALL LIGHT IN REACH.
[2024-09-08] MEDS ORDERED: INSULIN LISPRO 100 UNIT/ML ML SUB-Q SCH (21:00)
[2024-09-08] MEDS ORDERED: IBLOOD GLUCOSE TEST STRIP 1 EA TEST VI SCH (21:00)
--- NOTE | 2024-09-08 22:28 | NUR ---
THIS RN TO ROOM TO FIX PATIENT TELE LEAD. PATIENT DENIES FURTHER NEEDS AT THIS TIME. CALL LIGHT IN REACH.
--- NOTE | 2024-09-08 23:54 | NUR ---
PATIENT RESTING IN BED ON BACK WITH EYES CLOSED. RESPIRATIONS EVEN AND UNLABORED. CALL LIGHT IN REACH.
[2024-09-09] VITALS (18 sets, daily range): BP systolic 87–144; BP diastolic 56–83
--- NOTE | 2024-09-09 01:12 | NUR ---
PATIENT RESTING IN BED ON RIGH SIDE WITH EYES CLOSED. RESPIRATIONS EVEN AND UNLABORED. CALL LIGHT IN REACH.
--- NOTE | 2024-09-09 02:03 | NUR ---
VS AND I&Os OBTAINED AND RECORDED. PATIENT DENIES FURTHER NEEDS AT THIS TIME. CALL LIGHT IN REACH.
--- NOTE | 2024-09-09 03:00 | NUR ---
IN pt RM TO CHECK ON pt AFTER THE BED ALARM WENT OFF. pt STATED "I CAN'T SLEEP I SEE SHADOWS OVER THERE" POINTING TO THE WINDOW SHADES. HE ALSO STATED THE SHADOWS WERE WEARING COWBOY HATS. pt REMINIDED THAT THERE WAS NOTHING IN THE RM AND BLINDS WERE CLOSED MORE pt AGREED THAT IT WAS JUST THE BLINDS AT THIS TIME.
--- NOTE | 2024-09-09 03:16 | NUR ---
pt BED ALARM WENT OFF. pt SITTING ON THE EDGE OF THE BED STATING THE PEOPLE ARE STILL BOTHERING HIM. THIS RN ASKED HIM WHO IS BOTHERING HIM THE pt STATED IT WAS THE COWBOYS WITH HATS ON IN THE RM THEY WERE SAYING THINGS BUT HE CANT UNDERSTAND THEM. THIS RN ASSESSED A CWAH ON THE pt AND pt RECEIVED A 9 ON THE CWAH SCALE. pt RECEIVED PRN ATIVAN FOR A CWAH SCORE EQUAL TO OR GREATER THAN 8 PER PROTOCOL. CPOX PLACED ON pt TO MONITOR O2 SATURATION.
--- NOTE | 2024-09-09 04:03 | NUR ---
IN ROOM TO COLLECT CIWA SCORE, pt SCORED 4-RESTING QUIETLY IN BED. ON CPOX, BED ALARM ON AND CALL LIGHT IN REACH. pt REPORTS FEELING BETTER FOLLOWING ATIVAN APPROX 1 HR AGO. VSS.
--- NOTE | 2024-09-09 04:50 | NUR ---
THIS RN TO ROOM BECAUSE PATIENT TELE WAS UNABLE TO GET GOOD READING. PATIENT TRYING TO TAKE OFF HIS GOWN AND O2 FINGER PROBE AND STATING "CAN YOU GET ME THE BOWL THAT I WAS EATING OUT OF?". THIS RN RE-ORIENTED PATIENT AND TOLD HIM HE WAS NOT EATING OUT OF A BOWL. CIWA SCORE OFF 11 AT THIS TIME. PRN MEDICATION ADMINISTERED. PATIENT HAS NO FURTHER NEEDS AT THIS TIME. CALL LIGHT IN REACH.
[2024-09-09 05:33] LABS: BASOPHILS 0.4 % (0-2); EOSINOPHILS 0.1 % (0-6); HEMOGLOBIN 13.8 g/dL (12.0-18.0); LYMPHOCYTES 23.8 % (24-44); MCH 34.9 (27-36); MCHC 35.3 g/dl (30-36); MCV 98.8 fl (81-99); MONOCYTES 13.4 % (0-12); NEUTROPHILS 62.3 % (39-80); PLATELET COUNT 138 K/uL (140-440); RBC 3.94 M/ul (4.3-5.7); RDW 13.6 (10.5-15.0)
[2024-09-09 05:44] LABS: ANION GAP 9.5 (7-21); CALCIUM 8.4 mg/dL (8.5-10.1); CREATININE, SERUM 0.75 mg/dL (0.70-1.30); MAGNESIUM 1.8 mg/dL (1.8-2.4); PHOSPHORUS, INORGANIC 2.4 mg/dL (2.5-4.9); POTASSIUM 2.5 mmol/L (3.5-5.1)
--- NOTE | 2024-09-09 05:55 | NUR ---
IN RM TO HELP pt CLEAN UP AFTER EATING JELLO. NEW GOWN PLACED ON pt. pt WAS TRYING TO TAKE OFF HEART MONITOR CORDS AND CPOX MONITOR. pt WAS GETTING AGGITATED AND STARTED TO PULL AT THE NURSES HANDS WHEN THEY WERE TRYING TO GET HIM TO STOP PULLING AT HIS CORDS. pt STATING HE HAS TO GET UP TO SEE IF HIS BROTHER IS HERE. pt REMINDED HE WAS IN THE HOSPITAL AND THAT HIS BROTHER WAS NOT HERE AT THIS TIME. pt REMINDED HE HAD TO REST. pt CLOSED EYES AND THIS RN COVERED pt WITH BLAKETS.
--- NOTE | 2024-09-09 06:32 | NUR ---
OMID COLBY SITTING 1:1 WITH PATIENT. THIS RN HEARD SHOUTING AND BED ALRMING SOUNDING. RN TO ROOM. THIS RN AND MINE ENVIRONMENTAL ENGINEER EDUCATED PATIENT TO STAY IN BED FOR SAFETY. CIWA OF 15 OBTAINED AND RECORDED. PRN ATIVAN ADMINSTERED PER PROTOCOL. NO FURTHER NEEDS. OMID COLBY REMAINS AT BEDSIDE. CALL LIGHT IN REACH.
--- NOTE | 2024-09-09 07:00 | NUR ---
prn ativan given-see emar. pt awake and attempting to get out of bed and arm wrestling with juan carlos elena in hopes to get oob. pt reoriented back in bed, pt remains 1:1. pt remains on cpox, on ra. vs before ativan-spo2 94% on ra, rr approx 18-20, bp 136/76 (86).
--- NOTE | 2024-09-09 07:25 | NUR ---
RECEIVED REPORT FROM MIA LEES. PT LYING IN BED AWAKE WITH SITTER AT THE BEDSIDE. CALL LIGHT WITHIN REACH.
--- NOTE | 2024-09-09 08:02 | NUR ---
PT IS CURRENTLY ON A 1:1 FOR IMPULSIVENESS AND CONFUSION. PT IS REDIRECTABLE AT TIMES WITH STAFF BUT HAS BEEN SLIGHTLY AGGRESSIVE WITH NAC AT BEDSIDE. CBG 129 THIS MORNING. IV FLUIDS INFUSING. PRN ATIVAN GIVEN ORDERED - SEE MAR. PT CONTINUES TO REMOVE LINES TO TELEMETRY AND ATTEMPTING TO CLIMB OUT OF BED. BREAKFAST TRAY ARRIVED AND WILL ATTEMPT TO REDIRECT.
[2024-09-09] MEDS ORDERED: POTASSIUM CHLORIDE 40 MEQ,LIDOCAINE HCL 1% 40 MG in DEXTROSE 5% 250 ML IV ONE (08:30)
[2024-09-09] MEDS ORDERED: MAGNESIUM SULFATE 2 GM/50 ML BAG IV ONE (08:30)
[2024-09-09] MEDS ORDERED: POTASSIUM PHOSPHATE 30 MMOL in DEXTROSE 5% 500 ML IV ONE (09:00)
--- NOTE | 2024-09-09 09:12 | NUR ---
PT RESTING IN BED, NAC AT BEDSIDE FOR PATIENT SAFETY/IMPULSIVENESS. IV MG/POTASSIUM INFUSING WITH IV FLUIDS. PT TOLERATED ORAL MEDS AT THIS TIME.
--- NOTE | 2024-09-09 09:19 | NUR ---
UR CLINICAL REVIEW: [facility] [place] GASTROENTERITIS AND SUBSTANCE-RELATED DISORDERS BASIC DMAP (STATES MEDICAID) FROM OBS TO INPT 09/09/24 @ 0855 ORDER MATCHES REG AUTH PENDING, WILL SEND CLINICALS IF REQUESTED PLAN TO DC TO HOME WHEN STABLE. 09/11/24
[2024-09-09] MEDS ORDERED: PHENOBARBITAL SOD 130 MG/ML VIAL IV PRN (10:00)
--- NOTE | 2024-09-09 10:40 | NUR ---
THIS RN SPEAKS WITH DR. DAVISON ABOUT UPDATES ON PT CONDITION. MD STATES TO PLACE ORDERS FOR DAILY M.V.I BAG WELL FOR POTASSIUM, MAGNESIUM, AND PHOSPHATE FOR AFTER ELECTROLYTES GIVEN.
--- NOTE | 2024-09-09 10:49 | NUR ---
PT LEAVES MED/SURG TO TRANSFER TO CCU.
--- NOTE | 2024-09-09 11:25 | NUR ---
pt restless, bladder scan for greater than 675 ml of urine linen folder attempting to use urinal with pt, ativan given prn now.
--- NOTE | 2024-09-09 11:29 | NUR ---
karel notified dr while this rn at bedside - salazar ordered for retention, pt. restless and combative with full time paramedic.
--- NOTE | 2024-09-09 11:53 | NUR ---
1121 this rn placed salazar cath with some resistance and difficulty - immediate return of over 650 ml of dark orange urine - after pt attempted to use urinal with help and no result. pt attempting to pull lines and be combative with 3 staff to keep him safe, pt medicated per orders and mar had doc. bs checked and 168 with 1 unit of coverage. iv fusing with dextrose mix. staff continue to be at beside to keep pt in bed as he is throwing legs over rail and impulsively trying to exit bed with steam plant operator at side. reqires additional staff due to his agressive behavior and poor impulse control. quiet staff at side to keep pt safe holding his hands and re assuring him of his plan of care. pt id disoriented and hallucinating, attempting to bite staff. pt mumbles and verbally is confused.
--- NOTE | 2024-09-09 12:30 | NUR ---
Spoke with Carlitos. He is pleasant. Denies needs and would like to go home. States his address as listed on face sheet. He is able to answer questions, but does think the sitter watching him his is brother. She is an aid that works at the hospital. He denies needs at the time. He is restless. No plan for dc today.
[2024-09-09] MEDS ORDERED: MULTIVITAMINS 10 ML in SODIUM CHLORIDE 0.9% 1,000 ML IV ONE (14:00)
--- NOTE | 2024-09-09 14:23 | NUR ---
PT NOT AVIALABLE FOR VISIT. PROVIDED PRAYER.
--- NOTE | 2024-09-09 14:28 | NUR ---
willard from RT in with pt for EKG while pt is calm and sleeping.
--- NOTE | 2024-09-09 14:59 | NUR ---
repositioned pt to right side. salazar draining wnl, iv fusing well. hr irreg. oxygen dips down with NURIS wittnessed apnea. 1 L nc oxygen placed. to keep greater than 90% sats, while sleeping.
--- NOTE | 2024-09-09 15:23 | NUR ---
call to dr and updated on vitals and chastity - ok to place o2 to pt.
--- NOTE | 2024-09-09 16:52 | NUR ---
PT FAMILY UPDATED AND IN ROOM WITH THIS RN, UNDERSTAND AND ARE AT BEDSIDE WATCHING TV. PT SEDATE, GODOY WNL, IV WNL. LINE OF SITE TO RN.
--- NOTE | 2024-09-09 17:42 | NUR ---
pt turned to left side, pt son truman in room, pt became agitated and attempts to pull out lines again. pulling and restless, confused. PRN ativan.
--- NOTE | 2024-09-09 19:17 | NUR ---
this rn niranjan blood from new Iv in r arm. pt was not agreeable to keep arms still or strait for laboratory engineer to draw blood. very confused and restless. after this - RN gave report to fast food shift supervisor.
--- NOTE | 2024-09-09 19:20 | NUR ---
REPORT RECEIVED FROM DAY SHIFT RN. PATIENT RESTING IN BED, RESPIRATIONS EVEN AND UNLABORED. GODOY DRAINAING YELLOW URINE. BED ALARM ON.
--- NOTE | 2024-09-09 19:40 | NUR ---
LAB IN ROOM WITH PATIENT ATTEMPTING BLOOD DRAW. PATIENT WITH INCREASED AGITATION. PULLING AT HEART MONITOR LEADS AND CATHERTER TUBBING. PATIENT UNABLE TO FOLLOW CUES TO REDIRECT. PATIENT ATTMEPTING TO CLIMB OUT OF BED. UNABLE TO FOLLOW VERBAL CUES. PRN GIVEN SEE SHAD.
[2024-09-09 19:57] LABS: MAGNESIUM 2.4 mg/dL (1.8-2.4); POTASSIUM 3.1 mmol/L (3.5-5.1)
[2024-09-09] MEDS ORDERED: POTASSIUM CHLORIDE 10 MEQ/100 ML BAG IV SCH (20:45)
--- NOTE | 2024-09-09 20:45 | NUR ---
PATIENT RESTING IN BED WITH EYES CLOSED. LUNGS CTA, VSS, SAO2 WNL ON 2L VIA NC. BOWEL TONES ACTIVE X 4 QUADRANTS. GODOY CATHERTER DRAINING DARK YELLOW URINE. IV SITES PATENT AND WNL. NOTED REDNESS/BRUISING TO RIGHT ARM. UPDATED OF POTASSIUM LAB RESULTS. NEW ORDERS RECEIVED, IV POTASSIUM STARTED SEE JAN. PATIENT REPSOITIONED IN BED. BS OBTAINED. NO FURTHER NEEDS AT THIS TIME. BED ALARM ON.
--- NOTE | 2024-09-09 21:39 | EKG ---
[facility] [address] [facility] [place] [address] Signed Sinus rhythm with premature atrial complexes Left axis deviation Nonspecific ST and T wave abnormality Prolonged QT Abnormal ECG When compared with ECG of 26-JUN-2024 12:09, No significant change was found Confirmed by Mickey Davison MD ([id number]) on 09/09/2024 9:39:51 PM Electronically Signed By: MICKEY DAVISON DO 09/09/24 2139 PATIENT NAME: EARNESTINE AVILA III Electrocardiogram DATE OF : 62 PHYSICIAN: MICKEY DAVISON DO REPORT #: [id number] REPORT IS CONFIDENTIAL AND NOT TO BE RELEASED WITHOUT AUTHORIZATION
--- NOTE | 2024-09-09 21:44 | EKG ---
[facility] [address] [facility] [place] [address] Signed Unusual P axis and short ND, probable junctional rhythm with premature atrial complexes Left axis deviation Minimal voltage criteria for LVH, may be normal variant Prolonged QT Abnormal ECG No previous ECGs available Confirmed by Mickey Davison MD ([id number]) on 09/09/2024 9:44:12 PM Electronically Signed By: MICKEY DAVISON DO 09/09/24 2144 PATIENT NAME: EARNESTINE AVILA III Electrocardiogram DATE OF : 62 PHYSICIAN: MICKEY DAVISON DO REPORT #: [id number] REPORT IS CONFIDENTIAL AND NOT TO BE RELEASED WITHOUT AUTHORIZATION
--- NOTE | 2024-09-09 21:53 | NUR ---
PATIENT SON IS AT BEDSIDE. NOTED PERIODS OF SLEEP APNEA.
--- NOTE | 2024-09-09 22:22 | NUR ---
SECOND BAG OF POTASSIUM HUNG. PATIENT IV SITE REMAINS PATENT. RESTING WELL WITH EYES CLOSED, RESPIRATIONS EVEN AND UNLABORED. SPO2 WNL ON 2L O2. NOTED PERIODS OF APNEA WHILE SLEEPING. SON AT BEDSIDE, BED ALARM ON.
--- NOTE | 2024-09-09 23:26 | NUR ---
THIRD BAG OF POTASSIUM HUNG SEE JAN. IV SITE REMAINS PATENT, WNL. PAITENT RESTING WITH EYES CLOSED, RESPIRATIONS EVEN AND UNLABORED. BED ALARM ON.
[2024-09-10] VITALS (9 sets, daily range): BP systolic 98–140; BP diastolic 60–96
--- NOTE | 2024-09-10 00:26 | NUR ---
PATIENT AWAKE, RESTLESS IN BED PULLING HEART MONITOR LEADS OFF. REORIENTED AND REDIRECTED. PATIENT ABLE TO REDIREDCT AND LEADS REAPPLIED TO PATIENT. PATIENT ALERT TO SELF AND MONTH. REPORTS FEELING "TIRED". DENIES HEAD ACHE OR NAUSEA AT THIS TIME. ASSESSMENT COMPLETED. BED ALARM ON. SON AT BEDSIDE.
--- NOTE | 2024-09-10 01:45 | NUR ---
PATIENT RESTING IN BED WITH EYES CLOSED. RESPIRATIONS EVEN AND UNLABORED. SPO2 WNL ON 2L O2 VIA NC. GODOY CATHERTER DRAINAING YELLOW URINE. IV FLUIDS INFUSING WITH NO ISSUES OR CONCERNS. BED ALARM ON. PATIENT SON AT BEDSIDE. BED ALARM ON.
--- NOTE | 2024-09-10 03:15 | NUR ---
VSS, PATIENT RESTING IN BED WITH EYES CLOSED. RESPIRATIONS EVEN AND UNLABORED. CALL LIGHT WITHIN REACH. BED ALARM ON.
--- NOTE | 2024-09-10 04:30 | NUR ---
PATIENT RESTING IN BED. AROUSES TO TOUCH AND VOICE. PATIENT NOT ANSWERING QUESTIONS AT THIS TIME, HOWEVER IS EAISLY AROUSED. VSS. URINE OUTPUT NOTED, URINE YELLOW AND CONCENTRATED. IVF INFUSING WITH NO ISSUES AT THIS TIME. IV SITES PATENT. ASSESSMENT COMPLETED. SON AT [facility]. CALL LIGHT WITHIN REACH. BED ALARM ON.
--- NOTE | 2024-09-10 05:10 | NUR ---
PATIENT AWAKE AND RESTLESS IN BED. PULLING BLANKETS OFF AND TRYING TO PULL BREIF DOWN. RN REOIRENTED PATIENT AND EDUCATED HIM ON HAVING A GODOY CATHERTER. PATIENT APPEARED ACCEPTING OF THIS INFORMATION HE LAID BACK IN BED. PATIENT ALERT AND OREITNED TO PERSON, TOWN AND MONTH. PATIENT UNAWARE OF HOW HE CAME TO THE HOSPITAL. RN EDUCATED PATIENT THAT HIS SON BROUGHT HIM INTO ED. PATIENT SON AT BEDSIDE AND HELPED REORIENT PATIENT ON RECENT SITUTATION. CIWA ASSESSMENT COMPLETED. PATIENT DENIES ANY, HYDE, NAUSEA, HALLUCINATIONS, NO NOTED TREMOR. VSS. PATIENT REQUESTING SOMETHING TO EAT. RN GAVE PUDDING AND DIET SODA. PATIENT ATE AND DRANK WITH NO ISSUES OR CONCERNS. PATIENT ASKING WHEN HE CAN LEAVE THE HOSPITAL. RN EDUCATED PATIENT ON CURRENT POC AND INFORMED HIM THAT HE COULD SPEAK WITH THE DOCTOR FOR MORE INFORMATION IN A FEW HOURS WHEN THE DOCTOR CAME IN. PATIENT ACCEPTING OF THIS INFORMATION. PATIENT OFFERED WARM WASH CLOTH AND RN ASSISTED PATIENT WITH WASHING HIS FACE. LAB IN ROOM FOR AM LAB DRAW. IV FLUIDS CONTINUE TO RUN WITH NO ISSUES OR CONCERNS. IV SITES REMAIN PATENT. PATIENT DENIES ANY FURTHER NEEDS AT THIS TIME. CALL LIGHT WITHIN REACH. BED ALARM ON.
[2024-09-10 05:27] LABS: BASOPHILS 0.4 % (0-2); EOSINOPHILS 0.4 % (0-6); HEMATOCRIT 39.8 % (35.0-50.0); HEMOGLOBIN 14.1 g/dL (12.0-18.0); LYMPHOCYTES 32.3 % (24-44); MCH 35.3 (27-36); MCHC 35.4 g/dl (30-36); MCV 99.9 fl (81-99); MONOCYTES 10.7 % (0-12); NEUTROPHILS 56.2 % (39-80); PLATELET COUNT 114 K/uL (140-440); RBC 3.98 M/ul (4.3-5.7); RDW 13.5 (10.5-15.0)
[2024-09-10 05:44] LABS: MAGNESIUM 2.1 mg/dL (1.8-2.4); PHOSPHORUS, INORGANIC 2.9 mg/dL (2.5-4.9); POTASSIUM 3.4 mmol/L (3.5-5.1)
--- NOTE | 2024-09-10 07:30 | NUR ---
REPORT RECEIVED FROM MORTEZA BELLAMY. PT HAS JUST BEEN HELPED UP TO CHAIR BY SUPERVISOR OF OFFICIALS RN, AWAKE IN ROOM, DENIES NEEDS.
[2024-09-10] MEDS ORDERED: POTASSIUM CHLORIDE 40 MEQ,LIDOCAINE HCL 1% 40 MG in DEXTROSE 5% 250 ML IV ONE (08:15)
--- NOTE | 2024-09-10 08:59 | NUR ---
IN TO SEE PT
--- NOTE | 2024-09-10 09:33 | NUR ---
ALERT AND ORIENTED, SITTING UP IN RECLINER. STATES HE IS WANTING TO STOP DRINKING AND IS WILLING TO ACCEPT HELP. RAS DISCUSSED WITH PATIENT. OFFERED TO HAVE PEER VISIT HIM IN THE HOSPITAL. HE WOULD RATHER HAVE THE NUMBER TO CALL ON HIS OWN. RAS CARD PROVIDED. STATES HE WILL NEED A RIDE HOME AT DC. INFORMED CARERIDE CAN BE PROVIDED WHEN DC ORDERS ARE RECEIVED. DENIES OTHER NEEDS AT THIS TIME.
[2024-09-10 09:42] LABS: HIV 1,2 COMBO ANTIGEN/ANTIBODY Negative (Negative)
--- NOTE | 2024-09-10 09:47 | NUR ---
SPOKE WITH [facility]. THEY HAVE PREVIOUSLY MANAGED PATIENTS ON NALTREXONE AND COULD LIKELY MANAGE HIS NEEDS FOR MEDICATION. FOLLOW-UP APPOINTMETN SCHEDULED WITH DR. GAN FOR AT 0800. WILL PUT ON DC INSTRUCTIONS.
--- NOTE | 2024-09-10 10:11 | NUR ---
GODOY CATHETER DC'D, PT REMAINS SITTING UP IN CHAIR WITH CALL LIGHT IN HAND, WATCHING TV, SON IN ROOM ON COUCH, PT STATES HE WILL CALL IF HE NEEDS TO USE BATHROOM.
--- NOTE | 2024-09-10 10:52 | NUR ---
VISITED DURING SPIRITUAL CARE ROUNDS. PT EXPRESSED DESIRE TO OVERCOME ADDICTION, HOPE OF RECOVERY. COMPOSITION FLOOR SETTER PROVIDED SUPPORTIVE PRESENCE, ANTICIPATORY GUIDANCE, FACILITATED CONNECTION WITH SOFTWARE TESTING SPECIALIST, PROVIDED ROBSONRY. PT EXPRESSED GRATITUDE.
--- NOTE | 2024-09-10 11:19 | NUR ---
PT ASSISTED TO STAND TO VOID 100ML BASSAM URINE, BACK INTO CHAIR WITH CALL LIGHT IN HANDS. DENIES FURTHER NEEDS.
--- NOTE | 2024-09-10 13:03 | NUR ---
PT REMAINS SITTING UP IN CHAIR, SON IN ROOM, PT STILL WORKING ON EATING LUNCH, NO NEEDS AT THIS TIME, CALL LIGHT IN HAND.
--- NOTE | 2024-09-10 14:33 | NUR ---
report from benson henry, pt in chair with meal, son at side. pt is awake and alert, denies needs. call light in reach. pt used urinal and voided 200 ml of dark urine. pt talkative and responds well.
[2024-09-11 18:46] LABS: VITAMIN D,1,25-DIHYDROXY 44.7 pg/mL (19.9-79.3)
== END 2024-09-10 15:45 | disposition home or self-care (01) | DRG 897 ==
LOC: ED 08:57 → MS 08:59 → CCU 09-09 08:55 → MS 09-09 08:56 → CCU 09-09 11:00
PROVIDERS: Emergency Medicine; ADMIT Student in an Organized Health Care Education/Training Program; ATTEND Student in an Organized Health Care Education/Training Program
PROC: HZ2ZZZZ Detoxification Services for Substance Abuse Treatment (ICD-10-PCS; principal; 2024-09-09)
DX: F10.139 Alcohol abuse with withdrawal, unspecified (principal); K52.9 Noninfective gastroenteritis and colitis, unspecified; E87.6 Hypokalemia; I10 Essential (primary) hypertension; K20.90 Esophagitis, unspecified without bleeding; D69.6 Thrombocytopenia, unspecified; I48.91 Unspecified atrial fibrillation; Z66 Do not resuscitate; R21 Rash and other nonspecific skin eruption; R73.03 Prediabetes; N32.89 Other specified disorders of bladder; K76.0 Fatty (change of) liver, not elsewhere classified; Z90.49 Acquired absence of other specified parts of digestive tract; Z98.890 Other specified postprocedural states; Z91.030 Bee allergy status; Z79.899 Other long term (current) drug therapy; Z71.41 Alcohol abuse counseling and surveillance of alcoholic
CPT/HCPCS: 36415; 51702; 51798; 71045; 74176; 80048; 80053; 80307; 81001; 82652; 83036; 83690; 83735; 84075; 84100; 84132; 85025; 93005; 93010; A9270; G0480; J0780; J1650; J1815; J2060; J2405; J2470; J2560; J3411; J3475; J3480; J3490; J7030; J7060; J7121

== ENCOUNTER 2024-09-29 08:09 | Emergency (ER) | payer OTHER ==
[~2024-09-29] VITALS: Ht 175.3 cm; Wt 69.4 kg
[~2024-09-29 08:09] MED LIST changes: +PEPTO-BISMOL262 MG PO
--- OUTSIDE RECORDS SUMMARY | 2024-09-29 08:22 | XMS ---
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 Ashu has no Care Guidelines for this patient. Jluis VISIT COUNT (12 MO.) [address] [facility] TOTAL 4 NOTE: Visits indicate total known visits. ED/C VISIT TRACKING (12 MO.) 09/29/2024 08:[address] [facility] [place] TYPE: Emergency COMPLAINT: - VOMITING 09/08/2024 08:58 [facility] [place] TYPE: Emergency COMPLAINT: - VOMITING 06/25/2024 11:06 [facility] [place] TYPE: Emergency COMPLAINT: - NAUSA/VOMITING 04/09/2024 16:11 [facility] [place] TYPE: Emergency COMPLAINT: - VOMITING INPATIENT VISIT TRACKING (12 MO.) 09/09/2024 08:55 [facility] [place] TYPE: Critical Care COMPLAINT: - HYPOKALEMIA DIAGNOSES: - Acquired absence of other specified parts of digestive tract - Acquired absence of other specified parts of digestive tract - Alcohol abuse counseling and surveillance of alcoholic - Alcohol abuse counseling and surveillance of alcoholic - Alcohol abuse with withdrawal, unspecified - Alcohol abuse with withdrawal, unspecified - Bee allergy status - Bee allergy status - Do not resuscitate - Do not resuscitate - Esophagitis, unspecified without bleeding - Esophagitis, unspecified without bleeding - Essential (primary) hypertension - Essential (primary) hypertension - Fatty (change of) liver, not elsewhere classified - Fatty (change of) liver, not elsewhere classified - Hypokalemia - Hypokalemia - Noninfective gastroenteritis and colitis, unspecified - Other assistant terminal manager (current) drug therapy - Other assistant terminal manager (current) drug therapy - Other specified disorders of bladder - Other specified disorders of bladder - Other specified postprocedural states - Other specified postprocedural states - Prediabetes - Prediabetes - Rash and other nonspecific skin eruption - Rash and other nonspecific skin eruption - Thrombocytopenia, unspecified - Thrombocytopenia, unspecified - Unspecified atrial fibrillation - Unspecified atrial fibrillation 06/25/2024 11:07 [facility] [place] TYPE: Observation COMPLAINT: - HYPOKALEMIA DIAGNOSES: - Cannabis use, unspecified, uncomplicated - Essential (primary) hypertension - Hypo-osmolality and hyponatremia - Hypokalemia - Hypomagnesemia - Nausea with vomiting, unspecified - Type 2 diabetes mellitus without complications 04/09/2024 16:12 [facility] [place] TYPE: Observation COMPLAINT: - HYPOKALEMIA DIAGNOSES: - Bee allergy status - Cutaneous abscess of perineum - Essential (primary) hypertension - Hypo-osmolality and hyponatremia - Hypokalemia - Hypomagnesemia - Type 2 diabetes mellitus without complications [email or web address]
[2024-09-29 08:43] LABS: BASOPHILS 0.3 % (0-2); EOSINOPHILS 0.3 % (0-6); HEMATOCRIT 45.5 % (35.0-50.0); HEMOGLOBIN 16.2 g/dL (12.0-18.0); LYMPHOCYTES 5.3 % (24-44); MCH 35.1 (27-36); MCHC 35.5 g/dl (30-36); MCV 98.7 fl (81-99); MONOCYTES 9.7 % (0-12); NEUTROPHILS 84.4 % (39-80); PLATELET COUNT 182 K/uL (140-440); RBC 4.62 M/ul (4.3-5.7)
[2024-09-29] MEDS ORDERED: ondansetron HCL 4 MG/2 ML VIAL IV ONE (08:45)
[2024-09-29] MEDS ORDERED: PANTOPRAZOLE SODIUM 40 MG/10 ML VIAL IV ONE (08:45)
[2024-09-29] MEDS ORDERED: SODIUM CHLORIDE 0.9% 1,000 ML IV ONE (08:45)
[2024-09-29 08:57] LABS: ALBUMIN 3.9 g/dL (3.4-5.0); ALBUMIN/GLOBULIN RATIO 0.74 (1.1-2.4); ALCOHOL, MEDICAL <3 ng/dL (<3); ALKALINE PHOSPHATASE 79 U/L (46-116); ALT (SGPT) 31 U/L (14-59); ANION GAP 20.6 (7-21); AST (SGOT) 29 U/L (15-37); BILIRUBIN, TOTAL 2.2 ng/dL (0.2-1.0); BUN/CREATININE RATIO 7.08 (6.0-28.6); CALCIUM 9.4 mg/dL (8.5-10.1); CARBON DIOXIDE 30 mmol/L (21-32); CHLORIDE 87 mmol/L (98-107); CREATININE, SERUM 1.27 mg/dL (0.70-1.30); GLOMERULAR FILTRATION RATE,EST 64 mL/min (>60); POTASSIUM 2.6 mmol/L (3.5-5.1); PROTEIN, TOTAL 9.2 g/dL (6.4-8.2); UREA NITROGEN 9 mg/dL (7-18)
[2024-09-29] MEDS ORDERED: POTASSIUM CHLORIDE 10 MEQ TABCR PO ONE (09:30)
[2024-09-29] MEDS ORDERED: POTASSIUM CHLORIDE 10 MEQ/100 ML BAG IV SCH (09:30)
[2024-09-29] MEDS ORDERED: droPERidol 5 MG/2 ML VIAL IV ONE (09:45)
[2024-09-29] MEDS ORDERED: POTASSIUM CHLORIDE 20 MEQ in DEXTROSE 5% 250 ML IV ONE (10:15)
[2024-09-29] MEDS ORDERED: ONDANSETRON ODT8 MG PO (11:28)
[2024-09-29] MEDS ORDERED: PROMETHAZINE HC25 M1 PO (11:28)
[2024-09-29 13:35] VITALS: BP 120/90
== END 2024-09-29 13:36 | disposition home or self-care (01) ==
LOC: ED 08:09
PROVIDERS: Emergency Medicine
DX: K29.20 Alcoholic gastritis without bleeding (principal); I10 Essential (primary) hypertension; E11.9 Type 2 diabetes mellitus without complications; Z91.030 Bee allergy status
CPT/HCPCS: 36415; 71045; 80053; 83690; 85025; 96374; 96375; 99284-25; A9270; G0480; J1790; J2405; J2470; J3480; J7030; J7060

== ENCOUNTER 2024-10-15 08:59 | Emergency (ER) | payer OTHER ==
[~2024-10-15] VITALS: Ht 175.3 cm; Wt 70.0 kg
[~2024-10-15 08:59] MED LIST changes: +PROMETHAZINE HC25 M1 PO
--- OUTSIDE RECORDS SUMMARY | 2024-10-15 09:04 | XMS ---
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 Ashu has no Care Guidelines for this patient. Jluis VISIT COUNT (12 MO.) [address] [facility] TOTAL 5 NOTE: Visits indicate total known visits. ED/C VISIT TRACKING (12 MO.) 10/15/2024 08:59 [facility] [place] TYPE: Emergency COMPLAINT: - VOMITING 09/29/2024 08:09 [facility] [place] TYPE: Emergency COMPLAINT: - VOMITING DIAGNOSES: - Alcoholic gastritis with bleeding - Alcoholic gastritis without bleeding - Bee allergy status - Essential (primary) hypertension - Type 2 diabetes mellitus without complications - Vomiting, unspecified 09/08/2024 08:58 [facility] [place] TYPE: Emergency [...] Noninfective gastroenteritis and colitis, unspecified - Other long term care social worker (current) drug therapy - Other long term care social worker (current) drug therapy - Other specified disorders [...] - Type 2 diabetes mellitus without complications [email or web address]
[2024-10-15] MEDS ORDERED: LORazepam 2 MG/ML VIAL IV ONE ×2 (09:15→10:00)
[2024-10-15] MEDS ORDERED: SODIUM CHLORIDE 0.9% 1,000 ML IV ONE (09:15)
[2024-10-15] MEDS ORDERED: PANTOPRAZOLE SODIUM 40 MG/10 ML VIAL IV ONE (09:15)
[2024-10-15 09:26] LABS: BASOPHILS 0.2 % (0-2); HEMATOCRIT 44.9 % (35.0-50.0); HEMOGLOBIN 16.1 g/dL (12.0-18.0); LYMPHOCYTES 4.3 % (24-44); MCH 35.5 (27-36); MCHC 35.8 g/dl (30-36); MCV 99.1 fl (81-99); NEUTROPHILS 84.5 % (39-80); PLATELET COUNT 160 K/uL (140-440); RBC 4.53 M/ul (4.3-5.7); RDW 13.9 (10.5-15.0)
[2024-10-15 09:44] LABS: ALBUMIN 3.6 g/dL (3.4-5.0); ALBUMIN/GLOBULIN RATIO 0.72 (1.1-2.4); ANION GAP 20.7 (7-21); BILIRUBIN, TOTAL 1.6 ng/dL (0.2-1.0); BUN/CREATININE RATIO 9.32 (6.0-28.6); CALCIUM 9.2 mg/dL (8.5-10.1); CREATININE, SERUM 1.18 mg/dL (0.70-1.30); POTASSIUM 2.7 mmol/L (3.5-5.1); PROTEIN, TOTAL 8.6 g/dL (6.4-8.2)
[2024-10-15] MEDS ORDERED: NALTREXONE HCL50 MG PO (09:49)
[2024-10-15] MEDS ORDERED: PRILOSEC OTC20 MG PO (09:49)
[2024-10-15] MEDS ORDERED: POTASSIUM CHLORIDE 10 MEQ/100 ML BAG IV ONE ×2 (10:00→12:15)
[2024-10-15] MEDS ORDERED: POTASSIUM CHLORIDE 10 MEQ TABCR PO ONE (10:15)
[2024-10-15] MEDS ORDERED: droPERidol 5 MG/2 ML VIAL IV ONE (10:30)
[2024-10-15] MEDS ORDERED: POTASSIUM CHLORIDE 20 MEQ/15 ML CUP PO ONE (12:15)
[2024-10-15] MEDS ORDERED: K-TAB ER20 MEQ PO (13:59)
[2024-10-15 14:07] VITALS: BP 112/70
== END 2024-10-15 14:12 | disposition home or self-care (01) ==
LOC: ED 08:59
PROVIDERS: Emergency Medicine
DX: K52.9 Noninfective gastroenteritis and colitis, unspecified (principal); E87.6 Hypokalemia; E11.9 Type 2 diabetes mellitus without complications; I10 Essential (primary) hypertension; Z91.030 Bee allergy status; Z79.899 Other long term (current) drug therapy
CPT/HCPCS: 36415; 80053; 83690; 83735; 85025; 96361; 96365; 96375; 96376; 99284-25; A9270; J1790; J2060; J2470; J3480; J7030

== ENCOUNTER 2024-11-24 08:41 | Emergency (ER) | payer OTHER ==
[~2024-11-24] VITALS: Ht 175.3 cm; Wt 69.9 kg
[~2024-11-24 08:41] MED LIST changes: +K-TAB ER20 MEQ PO; +NALTREXONE HCL50 MG PO; +PRILOSEC OTC20 MG PO
[2024-11-24] MEDS ORDERED: SODIUM CHLORIDE 0.9% 1,000 ML IV ONE (09:00)
[2024-11-24] MEDS ORDERED: ondansetron HCL 4 MG/2 ML VIAL IV ONE (09:00)
[2024-11-24] MEDS ORDERED: PANTOPRAZOLE SODIUM 40 MG/10 ML VIAL IV ONE (09:00)
[2024-11-24 09:07] LABS: BASOPHILS 0.2 % (0-2); EOSINOPHILS 0.1 % (0-6); HEMATOCRIT 49.8 % (35.0-50.0); LYMPHOCYTES 8.1 % (24-44); MCH 35.4 (27-36); MCHC 36.1 g/dl (30-36); MCV 98.1 fl (81-99); MONOCYTES 10.5 % (0-12); NEUTROPHILS 81.1 % (39-80); PLATELET COUNT 170 K/uL (140-440); RBC 5.08 M/ul (4.3-5.7); RDW 13.6 (10.5-15.0)
[2024-11-24 09:15] LABS: INR 1.07 (0.80-1.30); PROTIME 13.9 Sec (11.2-14.2)
[2024-11-24] MEDS ORDERED: HYDROmorphone HCL 1 MG/ML SYR IV ONE (09:15)
[2024-11-24 09:17] LABS: PARTIAL THROMBOPLASTIN TIME 28.6 Sec (22.9-41.3)
[2024-11-24 09:24] LABS: ALBUMIN 3.9 g/dL (3.4-5.0); ALBUMIN/GLOBULIN RATIO 0.71 (1.1-2.4); ALCOHOL, MEDICAL <3 ng/dL (<3); ANION GAP 11.9 (7-21); BILIRUBIN, TOTAL 1.8 ng/dL (0.2-1.0); BUN/CREATININE RATIO 13.95 (6.0-28.6); CALCIUM 10.3 mg/dL (8.5-10.1); CREATININE, SERUM 1.72 mg/dL (0.70-1.30); MAGNESIUM 1.5 mg/dL (1.8-2.4); PROTEIN, TOTAL 9.4 g/dL (6.4-8.2)
[2024-11-24 09:33] LABS: POTASSIUM 1.9 mmol/L (3.5-5.1)
[2024-11-24] MEDS ORDERED: MAGNESIUM SULFATE 2 GM/50 ML BAG IV ONE ×2 (09:45→13:15)
[2024-11-24] MEDS ORDERED: POTASSIUM CHLORIDE 10 MEQ/100 ML BAG IV SCH ×2 (09:45→13:15)
[2024-11-24] MEDS ORDERED: droPERidol 5 MG/2 ML VIAL IV ONE (10:00)
[2024-11-24 10:11] LABS: PH, VENOUS 7.754 (7.31-7.41)
[2024-11-24] MEDS ORDERED: LORazepam 2 MG/ML VIAL ONE (10:37)
[2024-11-24] MEDS ORDERED: levETIRAcetam 500 MG/5 ML VIAL IV ONE (11:00)
[2024-11-24] MEDS ORDERED: SODIUM CHLORIDE 0.9% 1,000 ML IV PRN ×2 (11:00→13:15)
[2024-11-24] MEDS ORDERED: LORazepam 2 MG/ML VIAL IV ONE (11:00)
[2024-11-24 13:34] LABS: PH, VENOUS 7.497 (7.31-7.41)
[2024-11-24 13:38] LABS: BASOPHILS 0.1 % (0-2); EOSINOPHILS 0.2 % (0-6); HEMATOCRIT 43.1 % (35.0-50.0); HEMOGLOBIN 15.3 g/dL (12.0-18.0); LYMPHOCYTES 4.5 % (24-44); MCHC 35.4 g/dl (30-36); MCV 98.8 fl (81-99); MONOCYTES 10.8 % (0-12); NEUTROPHILS 84.4 % (39-80); PLATELET COUNT 145 K/uL (140-440); RBC 4.37 M/ul (4.3-5.7); RDW 13.2 (10.5-15.0)
[2024-11-24 13:54] LABS: ALBUMIN 3.1 g/dL (3.4-5.0); ALBUMIN/GLOBULIN RATIO 0.72 (1.1-2.4); ANION GAP 2.9 (7-21); BILIRUBIN, TOTAL 1.2 ng/dL (0.2-1.0); BUN/CREATININE RATIO 18.18 (6.0-28.6); CALCIUM 8.5 mg/dL (8.5-10.1); CREATININE, SERUM 1.21 mg/dL (0.70-1.30); MAGNESIUM 2.5 mg/dL (1.8-2.4); PHOSPHORUS, INORGANIC 4.7 mg/dL (2.5-4.9); PROTEIN, TOTAL 7.4 g/dL (6.4-8.2)
[2024-11-24 13:55] LABS: POTASSIUM 1.9 mmol/L (3.5-5.1)
[2024-11-24 15:54] VITALS: BP 94/65
--- NOTE | 2024-11-28 18:16 | EKG ---
[facility] [address] [place], [place] [address] Signed Normal sinus rhythm with sinus arrhythmia Left axis deviation ST depression, consider subendocardial injury Prolonged QT Abnormal ECG No previous ECGs available Confirmed by Fantasma Richardson MD ([id number]) on 11/28/2024 6:16:11 PM Electronically Signed By: FANTASMA RICHARDSON MD 11/28/24 1816 PATIENT NAME: EARNESTINE AVILA III Electrocardiogram DATE OF : 62 PHYSICIAN: FANTASMA RICHARDSON MD REPORT #: [id number] REPORT IS CONFIDENTIAL AND NOT TO BE RELEASED WITHOUT AUTHORIZATION
== END 2024-11-24 15:57 | disposition short-term general hospital (02) ==
LOC: ED 08:41
PROVIDERS: Emergency Medicine
DX: R42 Dizziness and giddiness (principal); F10.231 Alcohol dependence with withdrawal delirium; E87.6 Hypokalemia; E83.42 Hypomagnesemia; E87.1 Hypo-osmolality and hyponatremia; E86.0 Dehydration; I10 Essential (primary) hypertension; E11.9 Type 2 diabetes mellitus without complications; Z91.030 Bee allergy status
CPT/HCPCS: 71045; 74176; 80053; 80307; 82803; 83605; 83690; 83735; 83880; 84100; 84484; 85025; 85610; 85730; 93005; 93010; 96361; 96365; 96366; 96368; 96375; 96376; 99285-25; G0480; J1171; J1790; J1953; J2060; J2405; J2470; J3475; J3480; J7030

== ENCOUNTER 2025-04-14 08:02 | Emergency (ER) | payer OTHER ==
[~2025-04-14] VITALS: Ht 175.3 cm; Wt 70.5 kg
[2025-04-14 08:45] LABS: BASOPHILS 0.7 % (0.2-1.2); EOSINOPHILS 0.1 % (0.8-7.0); HEMATOCRIT 41.3 % (40.1-51.0); HEMOGLOBIN 15.2 g/dL (13.7-17.5); LYMPHOCYTES 14.8 % (21.8-53.1); MCH 32.8 PG (25.7-32.2); MCHC 36.8 g/dL (32.3-36.5); MONOCYTES 18.3 % (5.3-12.2); NEUTROPHILS 65.7 % (34.0-67.9); PLATELET COUNT 194 K/uL (163-337); RBC 4.64 M/uL (4.63-6.08)
[2025-04-14] MEDS ORDERED: THIAMINE HCL 200 MG/2 ML VIAL IV ONE (08:45)
[2025-04-14] MEDS ORDERED: SODIUM CHLORIDE 0.9% 1,000 ML IV ONE (08:45)
[2025-04-14] MEDS ORDERED: PANTOPRAZOLE SODIUM 40 MG/10 ML VIAL IV ONE (08:45)
[2025-04-14] MEDS ORDERED: ondansetron HCL 4 MG/2 ML VIAL IV ONE (08:45)
[2025-04-14 09:00] LABS: ALBUMIN 3.1 g/dL (3.4-5.0); ALBUMIN/GLOBULIN RATIO 0.66 (1.1-2.4); ANION GAP 3.1 (7-21); BILIRUBIN, TOTAL 1.4 mg/dL (0.2-1.0); BUN/CREATININE RATIO 14.86 (6.0-28.6); CALCIUM 9.3 mg/dL (8.5-10.1); CREATININE, SERUM 0.74 mg/dL (0.70-1.30); PROTEIN, TOTAL 7.8 g/dL (6.4-8.2)
[2025-04-14 09:07] LABS: POTASSIUM 2.1 mmol/L (3.5-5.1)
[2025-04-14] MEDS ORDERED: POTASSIUM CHLORIDE 10 MEQ/100 ML BAG IV SCH (09:15)
[2025-04-14] MEDS ORDERED: SODIUM CHLORIDE 0.9% 1,000 ML IV PRN (10:15)
[2025-04-14] MEDS ORDERED: MAGNESIUM SULFATE 2 GM/50 ML BAG IV ONE (11:30)
[2025-04-14 12:37] LABS: BILIRUBIN, URINE NEGATIVE (negative); BLOOD/HGB, URINE NEGATIVE (Negative); KETONE, URINE TRACE (Negative); LEUK ESTERASE, URINE NEGATIVE (negative); NITRITE, URINE NEGATIVE (negative); PH, URINE 8.5 (5-7)
--- NOTE | 2025-04-14 13:25 | EKG ---
[facility] [address] [facility] [place] [address] Signed Sinus rhythm with premature atrial complexes Left axis deviation Prolonged QT Abnormal ECG Confirmed by Fantasma Richardson MD ([id number]) on 04/14/2025 1:25:01 PM Electronically Signed By: FANTASMA RICHARDSON MD 04/14/25 1325 PATIENT NAME: JOYEARNESTINE III Electrocardiogram DATE OF : 62 PHYSICIAN: FANTASMA RICHARDSON MD REPORT #: [id number] REPORT IS CONFIDENTIAL AND NOT TO BE RELEASED WITHOUT AUTHORIZATION
[2025-04-14] MEDS ORDERED: OMEPRAZOLE40 MG PO (13:31)
[2025-04-14] MEDS ORDERED: CARAFATE1 GM PO (13:31)
[2025-04-14] MEDS ORDERED: ONDANSETRON ODT8 MG PO (13:31)
[2025-04-14 13:55] VITALS: BP 112/72
== END 2025-04-14 13:56 | disposition home or self-care (01) ==
LOC: ED 08:02
PROVIDERS: Emergency Medicine
DX: K29.20 Alcoholic gastritis without bleeding (principal); E87.6 Hypokalemia; I10 Essential (primary) hypertension; E11.9 Type 2 diabetes mellitus without complications; Z91.030 Bee allergy status
CPT/HCPCS: 36415; 74177; 80053; 81003; 83690; 83735; 84484; 85025; 93005; 93010; 96361; 96366; 96368; 96375; 99284-25; J2405; J2470; J3411; J3475; J3480; J7030; Q9967

== ENCOUNTER 2025-07-17 06:46 | Emergency (ER) | payer OTHER ==
[~2025-07-17] VITALS: Ht 175.3 cm; Wt 70.5 kg
[~2025-07-17 06:46] MED LIST changes: +CARAFATE1 GM PO; +OMEPRAZOLE40 MG PO
[2025-07-17 07:08] LABS: BASOPHILS 0.3 % (0.2-1.2); EOSINOPHILS 0.1 % (0.8-7.0); LYMPHOCYTES 8.8 % (21.8-53.1); MCH 33.8 PG (25.7-32.2); MCHC 36.0 g/dL (32.3-36.5); MCV 93.8 fL (79.0-92.2); MONOCYTES 10.0 % (5.3-12.2); NEUTROPHILS 80.5 % (34.0-67.9); RBC 5.36 M/uL (4.63-6.08)
[2025-07-17] MEDS ORDERED: SODIUM CHLORIDE 0.9% 1,000 ML IV PRN (07:30)
[2025-07-17 07:56] LABS: ALT (SGPT) 23.0 U/L (14-59); AST (SGOT) 30.0 U/L (15-37); GLOMERULAR FILTRATION RATE,EST 65.0 mL/min (>60); PROTEIN, TOTAL 9.3 g/dL (6.4-8.2); UREA NITROGEN 9.0 mg/dL (7-18)
[2025-07-17 08:22] LABS: BLOOD/HGB, URINE NEGATIVE (Negative); KETONE, URINE SMALL (Negative); LEUK ESTERASE, URINE NEGATIVE (negative); NITRITE, URINE NEGATIVE (negative)
[2025-07-17 08:27] LABS: EPITHELIAL CELLS, URINE SQUAMOUS 1+ /lpf (0-1+)
[2025-07-17 08:28] LABS: BACTERIA, URINE RARE /hpf (negative); CASTS, URINE GRANULAR 1+ \\lpf; CRYSTALS, URINE NONE SEEN (0-1+); REFLEX CULTURE, URINE No (No)
[2025-07-17] MEDS ORDERED: POTASSIUM CHLORIDE 10 MEQ/100 ML BAG IV ONE (08:30)
[2025-07-17] MEDS ORDERED: PROCHLORPERAZINE EDISYLATE 10 MG/2 ML VIAL IV ONE (08:30)
[2025-07-17] MEDS ORDERED: PANTOPRAZOLE SODIUM 40 MG/10 ML VIAL IV ONE (08:30)
[2025-07-17 10:55] VITALS: BP 129/83
== END 2025-07-17 10:55 | disposition home or self-care (01) ==
LOC: ED 06:46
PROVIDERS: Emergency Medicine
DX: K29.20 Alcoholic gastritis without bleeding (principal); E87.6 Hypokalemia; I10 Essential (primary) hypertension; E11.9 Type 2 diabetes mellitus without complications; Z79.899 Other long term (current) drug therapy; Z91.030 Bee allergy status
CPT/HCPCS: 36415; 80053; 81001; 83690; 83735; 85025; 96361; 96365; 96375; 99284-25; J0780; J2405; J2470; J3480; J7030

== ENCOUNTER 2025-08-08 08:20 | Observation (INO) | payer OTHER ==
[~2025-08-08] VITALS: Ht 175.3 cm; Wt 68.6 kg
--- OUTSIDE RECORDS SUMMARY | 2025-08-08 08:27 | XMS ---
PreManage Notification: EARNESTINE JOY Security Nutrition Consultant Events No recent Security Events currently on file CRITERIA MET - [facility] - 2 Visits in 30 Days CARE PROVIDERS There are no care providers on record at this time. Ashu has no Care Guidelines for this patient. [facility] MO[facility] NOTE: Visits indicate total known visits. ED/C VISIT TRACKING (12 MO.) 08[facility]08[facility]2025 08:[facility] [place] [facility] COMPLAINT: - ABDOMINAL PAIN 07/17/2025 06:46 [facility] [place] [facility] [place] COMPLAINT: - VOMITING DIAGNOSES: - Alcoholic gastritis without bleeding - Bee allergy status - Essential (primary) hypertension - Hypokalemia - Other longitudinal float operator (current) drug therapy - Right upper quadrant pain - Type 2 diabetes mellitus without complications 04/14/2025 08:02 [facility] [place] Emergency COMPLAINT: - VOMITING DIAGNOSES: - Alcoholic gastritis without bleeding - Bee allergy status - Essential (primary) hypertension - Hypokalemia - Nausea with vomiting, unspecified - Type 2 diabetes mellitus without complications 11/24/2024 08:[address] [facility] [place] TYPE: Emergency COMPLAINT: - DIZZINESS DIAGNOSES: - Alcohol dependence with withdrawal delirium - Bee allergy status - Dehydration - Dizziness and giddiness - Essential (primary) hypertension - Hypo-osmolality and hyponatremia - Hypokalemia - Hypomagnesemia - Type 2 diabetes mellitus without complications 10/15/2024 08:59 [facility] [place] TYPE: Emergency COMPLAINT: - VOMITING DIAGNOSES: - Bee allergy status - Essential (primary) hypertension - Hypokalemia - Noninfective gastroenteritis and colitis, unspecified - Other correction (current) drug therapy - Type 2 diabetes mellitus without complications - Vomiting, unspecified 09/29/2024 08:09 [facility] [place] TYPE: Emergency COMPLAINT: - VOMITING DIAGNOSES: - Alcoholic gastritis with bleeding - Alcoholic gastritis without bleeding - Bee allergy status - Essential (primary) hypertension - Type 2 diabetes mellitus without complications - Vomiting, unspecified 09/08/2024 08:58 [facility] [place] TYPE: Emergency COMPLAINT: - VOMITING INPATIENT VISIT TRACKING (12 MO.) 11/24/2024 18:28 [facility] TYPE: General Medicine COMPLAINT: - ETOH Withdrawal DIAGNOSES: - Abnormal weight loss - Acute kidney failure, unspecified - Acute respiratory failure with hypoxia - Alcohol use, unspecified with withdrawal, unspecified - Dysuria - Other disorders of electrolyte and fluid balance, not elsewhere classified 09/09/2024 08:55 [facility] TYPE: Critical Care COMPLAINT: - HYPOKALEMIA DIAGNOSES: [...] Noninfective gastroenteritis and colitis, unspecified - Other longitudinal float operator (current) drug therapy - Other longitudinal float operator (current) drug therapy - Other specified disorders of bladder - Other specified disorders of bladder - Other specified postprocedural states - Other specified postprocedural states - Prediabetes - Prediabetes - Rash and other nonspecific skin eruption - Rash and other nonspecific skin eruption - Thrombocytopenia, unspecified - Thrombocytopenia, unspecified - Unspecified atrial fibrillation - Unspecified atrial fibrillation [email or web address]
[2025-08-08 08:53] LABS: BASOPHILS 0.2 % (0.2-1.2); EOSINOPHILS 0 % (0.8-7.0); LYMPHOCYTES 4.5 % (21.8-53.1); MCH 33.9 PG (25.7-32.2); MCHC 36.7 g/dL (32.3-36.5); MCV 92.4 fL (79.0-92.2); MONOCYTES 9.9 % (5.3-12.2); NEUTROPHILS 85.0 % (34.0-67.9); RBC 5.13 M/uL (4.63-6.08)
[2025-08-08 09:15] LABS: ALT (SGPT) 16.0 U/L (14-59); AST (SGOT) 31.0 U/L (15-37); GLOMERULAR FILTRATION RATE,EST 79.0 mL/min (>60); PROTEIN, TOTAL 9.7 g/dL (6.4-8.2); UREA NITROGEN 8.0 mg/dL (7-18)
[2025-08-08] MEDS ORDERED: FAMOTIDINE 20 MG/ 2 ML VIAL IV ONE (09:15)
[2025-08-08] MEDS ORDERED: METOCLOPRAMIDE HCL 10 MG/2 ML SDV IV ONE (09:15)
[2025-08-08] MEDS ORDERED: SODIUM CHLORIDE 0.9% 1,000 ML IV PRN (09:15)
[2025-08-08 10:52] LABS: BLOOD/HGB, URINE NEGATIVE (Negative); KETONE, URINE SMALL (Negative); LEUK ESTERASE, URINE NEGATIVE (negative); NITRITE, URINE NEGATIVE (negative)
[2025-08-08 11:19] LABS: BACTERIA, URINE NONE SEEN /hpf (negative); CASTS, URINE HYALINE 1+ \\lpf; CRYSTALS, URINE NONE SEEN (0-1+); EPITHELIAL CELLS, URINE SQUAMOUS 1+ /lpf (0-1+); REFLEX CULTURE, URINE No (No)
[2025-08-08] MEDS ORDERED: PHENOBARBITAL SOD 130 MG/ML VIAL IV ONE (11:30)
[2025-08-08] MEDS ORDERED: LORazepam 2 MG/ML VIAL IV ONE (11:30)
[2025-08-08] MEDS ORDERED: PANTOPRAZOLE SODIUM 40 MG TABEC PO SCH (15:40)
[2025-08-08] MEDS ORDERED: SODIUM CHLORIDE 0.9% 1,000 ML IV SCH (15:45)
[2025-08-08] MEDS ORDERED: MAGNESIUM SULFATE 2 GM/50 ML BAG IV ONE (16:15)
[2025-08-08] MEDS ORDERED: POTASSIUM CHLORIDE 40 MEQ in DEXTROSE 5% 250 ML IV ONE (16:15)
--- NOTE | 2025-08-08 16:20 | NUR ---
PATIENT AR[facility]IV[facility] TO ROOM 120 VIA STRETCHER. SEIZURE PRECAUTIONS IN PLACED. ORIENTED TO CALL LIGHT, WITH IN REACH. FAMILY AT BEDSIDE. IVF STARTED. WARM BLANKETS PROVIDED FOR PATIENT COMFORT.
[2025-08-08 16:25] VITALS: BP 191/86
[2025-08-08] MEDS ORDERED: LORazepam 1 MG TAB PO PRN (17:30)
[2025-08-08] MEDS ORDERED: LORazepam 2 MG/ML VIAL IV/IM PRN (17:30)
[2025-08-08 17:54] VITALS: BP 117/78
--- NOTE | 2025-08-08 18:08 | NUR ---
PATIENT UP ON BED WATCHIGN TV, FAMILY IN THE ROOM. ALCOHOL WITHDRAWL ASSESSMENT COMPLETE, WITH A CIWA SCORE OF 1. KCL INFUSING AT THIS TIME. CALL LIGHT IN REACH, NO FURTHER NEEDS.
--- NOTE | 2025-08-08 19:13 | NUR ---
PT AWAKE IN BED, DENIES NEEDS, CALL LIGHT IN REACH. FALL AND SZ PRECAUTIONS IN PLACE. BED ALARM ON FOR PT SAFETY.
--- NOTE | 2025-08-08 19:44 | NUR ---
REPORT RECEIVED FROM DAY SHIFT RN. PT LYING IN BED ALERT AND ORIENTED. DENIES NEEDS. WHITE BOARD UPDATED. CALL LIGHT IN REACH. BED ALARM FOR SAFETY.
--- NOTE | 2025-08-08 19:58 | NUR ---
ORDER ENTRY SPECIALIST SET UP CPOX AND HELPED FAMILY WITH BEDDING FOR THE GUEST BED.
--- NOTE | 2025-08-08 20:00 | NUR ---
EVENING ASSESSMENT COMPLETE. PT DENIES PAIN OR NAUSEA. CIWA SCORE ZERO. TELE #[address] HR 70'S. VS AND I&O OBTAINED. SEIZURE PADS AND FALL MAT IN PLACE. PT SON TO STAY THE NIGHT. LINENS PROVIDED. PT DENIES QUESTIONS OR CONCERNS. CALL LIGHT IN REACH. BED ALARM FOR SAFETY.
[2025-08-08 20:03] VITALS: BP 114/67
--- NOTE | 2025-08-08 22:05 | NUR ---
IV POTASSIUM COMPLETE. PT REPORTS HE IS RESTING WELL. DENIES NEEDS. BED ALARM IN PLACE. CALL LIGHT IN REACH.
--- NOTE | 2025-08-09 00:24 | NUR ---
IV PUMP ALARMING. ISSUE RESOLVED. PT LYING ON LEFT SIDE RESTING WITH EYES CLOSED. RESPIRATIONS EVEN. CPOX IN PLACE. SpO2 98% ON RA. HR 60'S. FAMILY IN ROOM. BED ALARM FOR SAFETY.
[2025-08-09 01:36] VITALS: BP 114/62
[2025-08-09 01:37] VITALS: BP 114/62
--- NOTE | 2025-08-09 01:50 | NUR ---
PT RESTING WITH EYES CLOSED. AWAKENS EASILY. UP TO BR TO VOID 425 ML CONCENTRATED URINE WITH FWW AND SBA. GAIT STEADY. BACK TO BED, CLARITA WELL. VS AND I&O OBTAINED. PT DENIES PAIN OR NAUSEA. CIWA NEGATIVE. NO FURTHER NEEDS. CALL LIGHT IN REACH. BED ALARM FOR SAFETY.
--- NOTE | 2025-08-09 04:10 | NUR ---
PT IN BED RESTING WITH EYES CLOSED. RESPIRATIONS EVEN. CALL LIGHT IN REACH. BED ALARM FOR SAFETY.
[2025-08-09 05:17] VITALS: BP 115/47
[2025-08-09 05:18] LABS: BASOPHILS 0.3 % (0.2-1.2); EOSINOPHILS 0.3 % (0.8-7.0); LYMPHOCYTES 28.3 % (21.8-53.1); MCH 33.2 PG (25.7-32.2); MCHC 35.3 g/dL (32.3-36.5); MCV 94.1 fL (79.0-92.2); MONOCYTES 11.3 % (5.3-12.2); NEUTROPHILS 59.5 % (34.0-67.9); RBC 4.04 M/uL (4.63-6.08)
[2025-08-09 05:31] LABS: GLOMERULAR FILTRATION RATE,EST 106.0 mL/min (>60); UREA NITROGEN 7.0 mg/dL (7-18)
--- NOTE | 2025-08-09 05:46 | NUR ---
LAB IN FOR MORNING DRAW. VS AND I&O OBTAINED. PT DENIES NEEDS. BED ALARM IN PLACE. CALL LIGHT IN REACH.
[2025-08-09] MEDS ORDERED: POTASSIUM BICARBONATE/CIT AC 20 MEQ TABEF PO ONE (07:00)
[2025-08-09] MEDS ORDERED: POTASSIUM CHLORIDE 40 MEQ in DEXTROSE 5% 250 ML IV ONE (07:00)
--- NOTE | 2025-08-09 07:01 | NUR ---
VERBAL REPORT RECIEVED BY MIA MCMILLAN. PATIENT AWAKE IN BED, BREATHING EVEN AND UNLABORED. CALL LIGHT IN REACH. NO NEEDS AT THIS TIME.
[2025-08-09] MEDS ORDERED: PANTOPRAZOLE SO40 MG PO (07:42)
[2025-08-09] MEDS ORDERED: VITAMIN B-1100 MG PO (07:43)
[2025-08-09] MEDS ORDERED: FOLIC ACID1 MG PO (07:43)
[2025-08-09] MEDS ORDERED: THIAMINE HCL 100 MG TAB PO SCH (08:00)
[2025-08-09] MEDS ORDERED: MULTIVITAMINS THERAPEUTIC 1 EA TAB PO SCH (08:00)
[2025-08-09] MEDS ORDERED: FOLIC ACID 1 MG TAB PO SCH (08:00)
--- NOTE | 2025-08-09 08:08 | NUR ---
MORNING ASSESSMENT COMPLETE, MINOR VISIBLE TREMORS NOTED CIWA SCORE OF 2. PATIENT IS UP EATING BREAKFAST IN BED. FAMILY IN THE ROOM. IV KCL INFUSING. NEW BAG OF IVF HUNG. SEIZURE PADS, AND FALL MATS IN PLACE. BED ALARM ON FOR PATIENT SAFETY.NO FURTHER NEEDS AT THIS TIME. CALL LIGHT IN REACH.
[2025-08-09 09:02] VITALS: BP 121/76
--- NOTE | 2025-08-09 09:03 | NUR ---
HOURLY ROUNDING. PATIENT SITTING UP IN BED. AM CARE COMPLETED WELL ORAL CARE. NO REQUEST FROM PATIENT AT THIS TIME. PATIENT SON IS AT BEDSIDE. CALL LIGHT PLACED WITHIN REACH
--- NOTE | 2025-08-09 09:47 | NUR ---
PATIENT ALERT AND ORIENTED, SITTING UP IN BED. FAMILY MEMBER AT BEDSIDE. PATIENT LIVES IN HOUSE, NO STAIRS. STATES HE HAS A WALKER AND SHOWER CHAIR, NO OTHER DME. HE DRIVES. HAS NO FINANCIAL DIFFICULTIES AND IS PLANNING TO RETURN HOME TODAY. DENIES ANY CM NEEDS.
--- NOTE | 2025-08-09 11:21 | NUR ---
IN ROOM WITH PATIENT, DISCUSSED POC. PATIENT SITTING UP IN BED WATCHING TV WITH FAMILY IN THE ROOM. PATIENT HAS NO FURTHER NEEDS AT THE TIME. CALL LIGHT IN REACH.
[2025-08-09 11:31] VITALS: BP 138/75
--- NOTE | 2025-08-09 11:48 | NUR ---
UR CLINICAL REVIEW: MCG-PER MCG REVIEW MEETS OBS FOR SUBSTANCE RELATED WITHDRAWL WITH NEED FOR OBSERVATION, CIWA AND IVF BASIC DMAP OBS 08/08/25 @ 0821 ORDER MATCHES REG NO AUTH REQUIRED PER MEDICAID GUIDELINES FOR OBS VISIT DISCHARGE TO HOME 08/09/25
[2025-08-09] MEDS ORDERED: PHARMACY RENAL DOSE ADJUSTMENT 1 DOSE MISC PO SCH (12:00)
--- NOTE | 2025-08-09 12:53 | NUR ---
PATIENT CALLED TO ASK IF HIS WALLET WAS LEFT IN THE SAFE IN ROOM 120. THIS FREIGHT DELIVERY DRIVER IN ROOM, WALLET IN SAFE. TOLD PATIENT I COULD TAKE IT TO THE FRONT AND HAVE THEM PUT IT IN THE SAFE. PATIENT SAID TO JUST LEAVE IT AT THE DESK HE IS COMING RIGHT NOW TO GET IT. PATIENT STICKER PUT ON WALLET AND TAKEN STRIAGHT TO PASSENGER REPRESENTATIVE.
[2025-08-10] MEDS ORDERED: THIAMINE HCL 100 MG TAB PO SCH (08:00)
[2025-08-10] MEDS ORDERED: FOLIC ACID 1 MG TAB PO SCH (08:00)
== END 2025-08-09 12:05 | disposition home or self-care (01) ==
LOC: ED 08:20 → MS 08:21
PROVIDERS: Emergency Medicine; ADMIT Internal Medicine; ATTEND Internal Medicine
DX: F10.239 Alcohol dependence with withdrawal, unspecified (principal); E83.42 Hypomagnesemia; E87.6 Hypokalemia; E87.1 Hypo-osmolality and hyponatremia; K29.70 Gastritis, unspecified, without bleeding; I10 Essential (primary) hypertension; E11.9 Type 2 diabetes mellitus without complications; Z91.030 Bee allergy status
CPT/HCPCS: 36415; 80048; 80053; 81001; 83690; 83735; 85025; 96361; 96365; 96366; 96367; 96374; 96375; 96376; 99284-25; A9270; G0378; J1200; J2060; J2405; J2560; J2765; J3475; J3480; J7030; J7060

== ENCOUNTER 2025-11-18 11:47 | Emergency (ER) | payer OTHER ==
[~2025-11-18] VITALS: Ht 175.3 cm; Wt 73.0 kg
[~2025-11-18 11:47] MED LIST changes: +FOLIC ACID1 MG PO; +PANTOPRAZOLE SO40 MG PO; +VITAMIN B-1100 MG PO
[2025-11-18] MEDS ORDERED: TRANEXAMIC ACID IN NACL,ISO-OS 1,000 MG/100 ML PIGGYBACK IV ONE (12:15)
[2025-11-18] MEDS ORDERED: HYDROmorphone HCL 1 MG/ML SYR IV PRN (13:00)
[2025-11-18 13:03] LABS: MCV 91.5 fL (79.0-92.2); RBC 5.15 M/uL (4.63-6.08)
[2025-11-18 13:33] LABS: MCH 33.3 PG (25.7-32.2)
[2025-11-18 13:34] LABS: MCHC 36.6 g/dL (32.3-36.5)
[2025-11-18 13:44] LABS: BANDS, MANUAL DIFF 21; LYMPHOCYTES, MANUAL DIFF 10; MONOCYTES, MANUAL DIFF 5; NEUTROPHILS, MANUAL DIFF 64
[2025-11-18 13:44] LABS: INR 1.34 (0.80-1.30); PROTIME 15.8 Sec (11.2-14.2)
[2025-11-18 13:45] LABS: BASOPHILS, MANUAL DIFF 0; EOSINOPHILS, MANUAL DIFF 0
[2025-11-18 13:46] LABS: ALT (SGPT) 11.0 U/L (14-59); AST (SGOT) 30.0 U/L (15-37); GLOMERULAR FILTRATION RATE,EST 40.0 mL/min (>60); PROTEIN, TOTAL 8.2 g/dL (6.4-8.2); UREA NITROGEN 20.0 mg/dL (7-18)
[2025-11-18] MEDS ORDERED: POTASSIUM CHLORIDE 10 MEQ/100 ML BAG IV SCH (14:00)
[2025-11-18] MEDS ORDERED: METOCLOPRAMIDE HCL 10 MG/2 ML SDV IV ONE (14:45)
--- NOTE | 2025-11-19 19:16 | EKG ---
[facility] [address] [facility] [address] [facility] [place] [address] Signed Sinus tachycardia with premature atrial complexes Left anterior fascicular block Minimal voltage criteria for LVH, may be normal variant ( Norberto product ) Nonspecific ST abnormality Abnormal ECG When compared with ECG of 14-APR-2025 09:07, Vent. rate has increased BY [address] now depressed in Lateral leads T wave inversion no longer evident in Anterior leads Confirmed by Americo Davsion DO ([id number]) on 11/19/2025 7:15:47 PM Electronically Signed By: AMERICO DAVISON DO 11/19/251915 PATIENT NAME: EARNESTINE JOY TEN BRAY Electrocardiogram DATE OF : 62 PHYSICIAN: AMERICO DAVISON DO REPORT #: [id number] REPORT IS CONFIDENTIAL AND NOT TO BE RELEASED WITHOUT AUTHORIZATION
== END 2025-11-18 14:55 | disposition short-term general hospital (02) ==
LOC: ED 11:47
PROVIDERS: Emergency Medicine
DX: I61.9 Nontraumatic intracerebral hemorrhage, unspecified (principal); I10 Essential (primary) hypertension; Z91.030 Bee allergy status
CPT/HCPCS: 36415; 70450; 70496; 70498; 71045; 80053; 84484; 85025; 85060; 85610; 85730; 93005; 93010; 96365; 96375; 99291; J1171; J2405; J2765; J3480; Q9967